=== PATIENT | male | born 1940 | race Caucasian/White ===

== ENCOUNTER 2019-10-18 15:21 | Inpatient (IN) | payer MEDICARE ==
[~2019-10-18] VITALS: Ht 188 cm; Wt 71.3 kg
[2019-10-18 16:07] LABS: BASO # 0.2 x10^3/uL (0.0-0.2); BASO % 2 % (0-3); EOS # 0.1 x10^3/uL (0.0-0.7); EOS % 2 % (0-3); HEMATOCRIT 41.8 % (39.0-53.0); HEMOGLOBIN 14.4 g/dL (13.0-17.5); LYMPH # 1.9 x10^3/uL (1.0-4.8); LYMPH % 23 % (24-48); MEAN CORPUSCULAR HEMOGLOBIN 31 pg (25-35); MEAN CORPUSCULAR HGB CONC 35 g/dL (31-37); MEAN CORPUSCULAR VOLUME 89 fL (79-100); MONO # 0.7 x10^3/uL (0.0-1.1); MONO % 9 % (0-9); NEUT # 5.5 x10^3uL (1.8-7.7); NEUT % 65 % (31-73); PLATELET COUNT 201 x10^3/uL (140-400); RED BLOOD COUNT 4.72 x10^6/uL (4.30-5.70); RED CELL DISTRIBUTION WIDTH 14.2 % (11.5-14.5); WHITE BLOOD COUNT 8.5 x10^3/uL (4.0-11.0)
--- NOTE | 2019-10-18 16:09 | PHYS DOC ---
Adult General Chief Complaint Chief Complaint: MEDICAL CLEARANCE [facility] HPI Patient is an 78-year-old male who presents for medical clearance for [facility] for reported behavioral disturbances. Patient reportedly getting more aggressive with staff and other patients. Additional history is agee ited as patient is not answering questions.[] Review of Systems Review of Systems Constitutional: Denies fever or chills [] Respiratory: Denies cough or shortness of breath [] Cardiovascular: No additional information not addressed in HPI [] GI: No reported vomiting or diarrhea [] Integument: Denies rash or skin lesions [] Neurologic: Denies headache, focal weakness or sensory changes [] Unable to assess for full review of systems as patient is not answering questions. Physical Exam Physical Exam Constitutional: Well developed, well nourished, no acute distress, non-toxic appearance. [] HENT: Normocephalic, atraumatic, bilateral external ears normal, oropharynx moist, no oral exudates, nose normal. [] Eyes: PERRLA, EOMI, conjunctiva normal, no discharge. [] Neck: Normal range of motion, no tenderness, supple, no stridor. [] Cardiovascular: Regular rate and rhythm[] Lungs & Thorax: Bilateral breath sounds clear to auscultation [] Abdomen: Bowel sounds normal, soft, no tenderness. [] Skin: Warm, dry, no erythema, no rash. [] Extremities: No tenderness, no cyanosis, no clubbing, ROM intact. [] Neurologic: Somnolent but arousable, no focal deficits noted. [] EKG EKG [] Radiology/Procedures Radiology/Procedures [] Course & Med Decision Making Course & Med Decision Making Pertinent Labs and Imaging studies reviewed. (See chart for details) [] Dragon Disclaimer Dragon Disclaimer This electronic medical record was generated, in whole or in part, using a voice recognition dictation system. Departure Departure: Impression: Primary Impression: Dementia with behavioral disturbance Disposition: ADMITTED INPATIENT Admitting Physician: Other (Dr. Casillas) Condition: STABLE Referrals: KEANU SHELTON (PCP) Problem Qualifiers Primary Impression: Dementia with behavioral disturbance Dementia type: unspecified type Qualified Codes: F03.91 - Unspecified dementia with behavioral disturbance ADITHYA KELLER Jr. DO Oct 18, 2019 16:09
[2019-10-18 16:18] LABS: CALCIUM 8.6 mg/dL (8.5-10.1); CREATININE 1.6 mg/dL (0.7-1.3); GFR 41.8
[2019-10-18 16:24] LABS: ALBUMIN 3.5 g/dL (3.4-5.0); TOTAL PROTEIN 7.1 g/dL (6.4-8.2)
[2019-10-18 16:43] LABS: BARBITURATES NEG (NEG); BENZODIAZEPINES NEG (NEG); CANNABINOIDS NEG (NEG); COCAINE NEG (NEG); METHADONE NEG (NEG); OPIATES NEG (NEG); PHENCYCLIDINE NEG (NEG)
[2019-10-18 16:44] LABS: AMPHETAMINE/METHAMPHETAMINE NEG (NEG)
[2019-10-18 16:51] LABS: BILIRUBIN,URINE NEG (NEG); CLARITY,URINE CLEAR; COLOR,URINE YELLOW; GLUCOSE,URINE NEG (NEG); NITRITE,URINE NEG (NEG); UROBILINOGEN,URINE 0.2 mg/dL (0.2 mg/dL)
[2019-10-18 16:52] LABS: BACTERIA,URINE 0 /HPF (0-FEW)
--- NOTE | 2019-10-18 16:57 | EKG ---
[address] [address] Test Date: 2019-10-18 Test Time: 16:20:30 Pat Name: NICOLÁS CHRISTIANSON Department: Room: Gender: M Device Engineer: : [id number] Requested By: ADITHYA KELLER Order Number: [id number] Reading MD: Humberto Ortiz MD Measurements Intervals [place] Rate: 66 P: 90 VA: 198 QRS: -47 QRSD: 132 T: 47 QT: 450 QTc: 474 Interpretive Statements SINUS RHYTHM RBBB LAD Electronically Signed On 11-17-2019 10:37:51 RN ELIGIBILITY by Humberto Ortiz MD
[2019-10-18 18:25] VITALS: BP 138/74
[2019-10-18] MEDS ORDERED: MAGN400O7 PO (18:26)
[2019-10-18] MEDS ORDERED: MAG-27 PO (18:26)
[2019-10-18] MEDS ORDERED: BISA10SU4 RC (18:26)
[2019-10-18] MEDS ORDERED: ACET650S11 RC (18:26)
[2019-10-18] MEDS ORDERED: OLAN2.5T3 PO (18:26)
[2019-10-18] MEDS ORDERED: ACET650S19 PO (18:26)
[2019-10-18] MEDS ORDERED: LORA-254 PO (18:26)
[2019-10-18] MEDS ORDERED: POTA20TA4 PO (18:26)
[2019-10-18] MEDS ORDERED: ACET325T21 PO (18:26)
[2019-10-18] MEDS ORDERED: MEMA28CA PO (18:26)
[2019-10-18] MEDS ORDERED: LOSA1TAB19 PO (18:26)
[2019-10-18] MEDS ORDERED: MIRT7.5T8 PO (18:26)
[2019-10-18] MEDS ORDERED: DONE10TA61 PO (18:26)
[2019-10-18] MEDS ORDERED: ASPI81TA59 PO (18:26)
[2019-10-18] MEDS ORDERED: MELA3TAB56 PO (18:26)
[2019-10-18] MEDS ORDERED: AMLO5TAB4 PO (18:26)
[2019-10-18] MEDS ORDERED: LOPE2TAB27 PO (18:26)
[2019-10-18] MEDS ORDERED: BISACODYL 10 MG SUPP.RECT RC PRN (19:30)
[2019-10-18] MEDS ORDERED: ACETAMINOPHEN 325 MG TABLET PO PRN ×2 (19:30→22:15)
[2019-10-18] MEDS ORDERED: ACETAMINOPHEN 650 MG SUPP.RECT. RC PRN (19:30)
[2019-10-18] MEDS ORDERED: MAG HYDROX/AL HYDROX/SIMETH 30 ML ORAL.SUSP PO PRN ×2 (19:45→22:15)
[2019-10-18] MEDS ORDERED: LOPERAMIDE 2 MG CAPSULE PO PRN (19:45)
[2019-10-18] MEDS: MIRTAZAPINE 7.5 MG TABLET. PO SCH (20:33)
[2019-10-18] MEDS: MELATONIN 3 MG TABLET PO SCH (20:33)
[2019-10-18] MEDS: OLANZapine 2.5 MG TABLET PO SCH (20:33)
[2019-10-18] MEDS: hydroCHLOROthiazide 12.5 MG CAPSULE PO SCH (20:34)
[2019-10-18] MEDS: LOSARTAN 50 MG TABLET. PO SCH (20:34)
[2019-10-18] MEDS: MAGNESIUM HYDROXIDE 2,400 MG/30 ML ORAL.SUSP. PO SCH (20:35)
[2019-10-18] MEDS: ACETAMINOPHEN 650 MG/20.3 ML SOLUTION. PO SCH (20:35)
[2019-10-18] MEDS: DONEPEZIL HCL 10 MG TABLET PO SCH (20:35)
--- NOTE | 2019-10-18 21:09 | PDOC ---
Exam Note: Jose Eduardo Note: Please also refer to the separate dictated note~for this date of service dictated separately. Discussed the patient with Nursing staff reviewed the chart.~Reviewed interim history and current functioning. Reviewed vital signs,~Labs/ Radiology~and current medications noted below. Continue current treatment with the changes noted in the dictated addendum note Assessment: Vital Signs/I&O: Vital Signs Date Time Temp Pulse Resp B/P (MAP) Pulse Ox O2 Delivery O2 Flow Rate FiO2 10/18/19 20:34 64 138/74 10/18/19 18:25 97.2 20 95 10/18/19 15:35 Room Air Labs: Laboratory Tests Test 10/18/19 15:51 10/18/19 16:25 White Blood Count 8.5 x10^3/uL (4.0-11.0) Red Blood Count 4.72 x10^6/uL (4.30-5.70) Hemoglobin 14.4 g/dL (13.0-17.5) Hematocrit 41.8 % (39.0-53.0) Mean Corpuscular Volume 89 fL (79-100) Mean Corpuscular Hemoglobin 31 pg (25-35) Mean Corpuscular Hemoglobin Concent 35 g/dL (31-37) Red Cell Distribution Width 14.2 % (11.5-14.5) Platelet Count 201 x10^3/uL (140-400) Neutrophils (%) (Auto) 65 % (31-73) Lymphocytes (%) (Auto) 23 % (24-48) L Monocytes (%) (Auto) 9 % (0-9) Eosinophils (%) (Auto) 2 % (0-3) Basophils (%) (Auto) 2 % (0-3) Neutrophils # (Auto) 5.5 x10^3uL (1.8-7.7) Lymphocytes # (Auto) 1.9 x10^3/uL (1.0-4.8) Monocytes # (Auto) 0.7 x10^3/uL (0.0-1.1) Eosinophils # (Auto) 0.1 x10^3/uL (0.0-0.7) Basophils # (Auto) 0.2 x10^3/uL (0.0-0.2) Sodium Level 145 mmol/L (136-145) Potassium Level 4.0 mmol/L (3.5-5.1) Chloride Level 110 mmol/L (98-107) H Carbon Dioxide Level 26 mmol/L (21-32) Anion Gap 9 (6-14) Blood Urea Nitrogen 32 mg/dL (8-26) H Creatinine 1.6 mg/dL (0.7-1.3) H Estimated GFR (Cockcroft-Gault) 41.8 BUN/Creatinine Ratio 20 (6-20) Glucose Level 90 mg/dL (70-99) Calcium Level 8.6 mg/dL (8.5-10.1) Magnesium Level 2.2 mg/dL (1.8-2.4) Total Bilirubin 1.0 mg/dL (0.2-1.0) Aspartate Amino Transferase (AST) 25 U/L (15-37) Alanine Aminotransferase (ALT) 24 U/L (16-63) Alkaline Phosphatase 81 U/L (46-116) Total Protein 7.1 g/dL (6.4-8.2) Albumin 3.5 g/dL (3.4-5.0) Albumin/Globulin Ratio 1.0 (1.0-1.7) Ethyl Alcohol Level < 10 mg/dL (0-10) Urine Collection Type U cath Urine Color Yellow Urine Clarity Clear Urine pH 5.5 Urine Specific Reading >=1.030 Urine Protein Neg (NEG-TRACE) Urine Glucose (UA) Neg mg/dL (NEG) Urine Ketones (Stick) Neg mg/dL (NEG) Urine Blood Trace (NEG) Urine Nitrite Neg (NEG) Urine Bilirubin Neg (NEG) Urine Urobilinogen Dipstick 0.2 mg/dL (0.2 mg/dL) Urine Leukocyte Esterase Neg (NEG) Urine RBC 1-2 /HPF (0-2) Urine WBC 1-4 /HPF (0-4) Urine Squamous Epithelial Cells None /LPF Urine Transitional Epithelial Cells Few /LPF Urine Bacteria 0 /HPF (0-FEW) Urine Mucus Slight /LPF Urine Opiates Screen Neg (NEG) Urine Methadone Screen Neg (NEG) Urine Barbiturates Neg (NEG) Urine Phencyclidine Screen Neg (NEG) Urine Amphetamine/Methamphetamine Neg (NEG) Urine Benzodiazepines Screen Neg (NEG) Urine Cocaine Screen Neg (NEG) Urine Cannabinoids Screen Neg (NEG) Urine Ethyl Alcohol Neg (NEG) Current Medications: Meds: Current Medications Medications (Trade) Dose Ordered Sig/Cathi Route PRN Reason Start Time Stop Time Status Last Admin Dose Admin Acetaminophen (Tylenol Oral Soln) 650 mg BID PO 10/18/19 21:00 10/18/19 20:35 Donepezil HCl (Aricept) 22.5 mg QHS PO 10/18/19 21:00 10/18/19 20:35 Melatonin (Melatonin) 3 mg QHS PO 10/18/19 21:00 10/18/19 20:33 Mirtazapine (Remeron) 7.5 mg QHS PO 10/18/19 21:00 10/18/19 20:33 Olanzapine (ZyPREXA) 2.5 mg BID PO 10/18/19 21:00 10/18/19 20:33 Losartan Potassium (Cozaar) 50 mg QHS PO 10/18/19 21:00 10/18/19 20:34 Hydrochlorothiazide (Microzide) 12.5 mg QHS PO 10/18/19 21:00 10/18/19 20:34 I have reviewed the current psychotropics carefully including drug interactions. Risk benefit ratio favors no change other than as noted in my dictated progress note. Diagnosis: Problems: (1) Anxiety disorder (2) Dementia with behavioral disturbance (3) Dementia, vascular, with delusions (4) Dementia, vascular, with depression (5) Dementia in Alzheimer's disease with delusions (6) Dementia in Alzheimer's disease with depression (7) Impulse control disorder MAN VICKERS MD Oct 18, 2019 21:09
[2019-10-18] MEDS ORDERED: MAGNESIUM HYDROXIDE 2,400 MG/30 ML ORAL.SUSP. PO PRN (22:15)
[2019-10-18] MEDS ORDERED: METHYL SALICYLATE/MENTHOL TOPICAL OINTMENT 57GM TUBE. TP PRN (22:15)
[2019-10-19 05:15] VITALS: BP 140/81
[2019-10-19] MEDS: LORazepam 0.5 MG TABLET PO PRN (06:11)
[2019-10-19] MEDS: MEMANTINE 10 MG TABLET. PO SCH ×2 (10:14→21:02)
[2019-10-19] MEDS: POTASSIUM CHLORIDE 20 MEQ TABLET.ER. PO SCH (10:14)
[2019-10-19] MEDS: OLANZapine 2.5 MG TABLET PO SCH ×2 (10:14→21:01)
[2019-10-19] MEDS: ASPIRIN 81 MG TAB.CHEW PO SCH (10:15)
[2019-10-19] MEDS: amLODIPine BESYLATE 5 MG TABLET PO SCH (10:15)
[2019-10-19] MEDS: ACETAMINOPHEN 650 MG/20.3 ML SOLUTION. PO SCH ×2 (10:15→21:02)
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
[2019-10-19 19:17] LABS: THYROID STIM HORMONE (TSH) 2.098 uIU/mL (0.358-3.740)
[2019-10-19] MEDS: MIRTAZAPINE 7.5 MG TABLET. PO SCH (21:01)
[2019-10-19] MEDS: DONEPEZIL HCL 10 MG TABLET PO SCH (21:01)
[2019-10-19] MEDS: LOSARTAN 50 MG TABLET. PO SCH (21:02)
[2019-10-19] MEDS: hydroCHLOROthiazide 12.5 MG CAPSULE PO SCH (21:02)
[2019-10-19] MEDS: MELATONIN 3 MG TABLET PO SCH (21:02)
[2019-10-19] MEDS: MAGNESIUM HYDROXIDE 2,400 MG/30 ML ORAL.SUSP. PO SCH (21:03)
--- NOTE | 2019-10-19 21:26 | PDOC ---
Exam Note: Jose Eduardo Note: Please also refer to the separate dictated note~for this date of service dictated separately.~Patient seen individually. Discussed the patient with Nursing staff reviewed the chart.~Reviewed interim history and current functioning. Reviewed vital signs,~Labs/ Radiology~and current medications noted below. Continue current treatment with the changes noted in the dictated addendum note Assessment: Vital Signs/I&O: Vital Signs Date Time Temp Pulse Resp B/P (MAP) Pulse Ox O2 Delivery O2 Flow Rate FiO2 10/19/19 21:02 47 140/81 10/19/19 05:15 97.0 16 98 10/18/19 15:35 Room Air I & O 10/18/19 10/18/19 10/19/19 15:00 23:00 07:00 Intake Total 0 ml Balance 0 ml Labs: Laboratory Tests Test 10/19/19 19:31 Glucose (Fingerstick) 84 mg/dL (70-99) Current Medications: Meds: Current Medications Medications (Trade) Dose Ordered Sig/Cathi Route PRN Reason Start Time Stop Time Status Last Admin Dose Admin Amlodipine Besylate (Norvasc) 5 mg DAILY PO 10/19/19 09:00 10/19/19 10:15 Aspirin (Children'S Aspirin) 162 mg DAILY PO 10/19/19 09:00 10/19/19 10:15 Potassium Chloride (Klor-Con) 20 meq DAILY PO 10/19/19 09:00 10/19/19 10:14 Memantine (Namenda) 10 mg BID PO 10/19/19 09:00 10/19/19 21:02 I have reviewed the current psychotropics carefully including drug interactions. Risk benefit ratio favors no change other than as noted in my dictated progress note. Diagnosis: Problems: (1) Dementia with behavioral disturbance (2) Anxiety disorder (3) Dementia, vascular, with delusions (4) Dementia, vascular, with depression (5) Dementia in Alzheimer's disease with delusions (6) Dementia in Alzheimer's disease with depression (7) Impulse control disorder MAN VICKERS MD Oct 19, 2019 21:26
[2019-10-19 23:06] LABS: HEMOGLOBIN A1C 5.1 % (4.8-5.6)
[2019-10-20 00:06] LABS: THYROXINE 6.8 ug/dL (4.5-12.0)
[2019-10-20] MEDS: traZODone 50 MG TABLET. PO PRN (01:13)
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
[2019-10-20 05:08] VITALS: BP 131/78
[2019-10-20] MEDS: OLANZapine 2.5 MG TABLET PO SCH ×2 (08:48→19:44)
[2019-10-20] MEDS: POTASSIUM CHLORIDE 20 MEQ TABLET.ER. PO SCH (08:49)
[2019-10-20] MEDS: amLODIPine BESYLATE 5 MG TABLET PO SCH (08:49)
[2019-10-20] MEDS: MEMANTINE 10 MG TABLET. PO SCH ×2 (08:49→19:42)
[2019-10-20] MEDS: ACETAMINOPHEN 650 MG/20.3 ML SOLUTION. PO SCH ×2 (08:49→19:42)
[2019-10-20] MEDS: ASPIRIN 81 MG TAB.CHEW PO SCH (08:49)
[2019-10-20] MEDS: SERTRALINE 25 MG TABLET. PO SCH (08:52)
[2019-10-20 15:39] VITALS: BP 109/53
[2019-10-20] MEDS: MAGNESIUM HYDROXIDE 2,400 MG/30 ML ORAL.SUSP. PO SCH (19:42)
[2019-10-20] MEDS: DONEPEZIL HCL 10 MG TABLET PO SCH (19:42)
[2019-10-20] MEDS: MIRTAZAPINE 7.5 MG TABLET. PO SCH (19:43)
[2019-10-20] MEDS: hydroCHLOROthiazide 12.5 MG CAPSULE PO SCH ×3 (19:43→19:54)
[2019-10-20] MEDS: MELATONIN 3 MG TABLET PO SCH (19:44)
[2019-10-20] MEDS: LOSARTAN 50 MG TABLET. PO SCH ×3 (19:44→19:54)
--- NOTE | 2019-10-20 20:49 | PDOC ---
Exam Note: Jose Eduardo Note: Please also refer to the separate dictated note~for this date of service dictated separately.~Patient seen individually. Discussed the patient with Nursing staff reviewed the chart.~Reviewed interim history and current functioning. Reviewed vital signs,~Labs/ Radiology~and current medications noted below. Continue current treatment with the changes noted in the dictated addendum note Assessment: Vital Signs/I&O: Vital Signs Date Time Temp Pulse Resp B/P (MAP) Pulse Ox O2 Delivery O2 Flow Rate FiO2 10/20/19 19:54 104/66 10/20/19 15:39 97.6 75 18 96 10/20/19 05:08 Room Air I & O 10/19/19 10/19/19 10/20/19 14:59 22:59 06:59 Intake Total 420 ml 0 ml Balance 420 ml 0 ml Current Medications: Meds: Current Medications Medications (Trade) Dose Ordered Sig/Cathi Route PRN Reason Start Time Stop Time Status Last Admin Dose Admin Sertraline HCl (Zoloft) 25 mg DAILY PO 10/20/19 09:00 10/23/19 08:59 10/20/19 08:52 I have reviewed the current psychotropics carefully including drug interactions. Risk benefit ratio favors no change other than as noted in my dictated progress note. Diagnosis: Problems: (1) Dementia with behavioral disturbance (2) Anxiety disorder (3) Dementia, vascular, with delusions (4) Dementia, vascular, with depression (5) Dementia in Alzheimer's disease with delusions (6) Dementia in Alzheimer's disease with depression (7) Impulse control disorder MAN VICKERS MD Oct 20, 2019 20:49
[2019-10-21 05:36] VITALS: BP 111/73
[2019-10-21] MEDS: SERTRALINE 25 MG TABLET. PO SCH (10:33)
[2019-10-21] MEDS: OLANZapine 2.5 MG TABLET PO SCH ×2 (10:33→19:48)
[2019-10-21] MEDS: ACETAMINOPHEN 650 MG/20.3 ML SOLUTION. PO SCH ×2 (10:33→19:48)
[2019-10-21] MEDS: POTASSIUM CHLORIDE 20 MEQ TABLET.ER. PO SCH (10:33)
[2019-10-21] MEDS: amLODIPine BESYLATE 5 MG TABLET PO SCH (10:33)
[2019-10-21] MEDS: ASPIRIN 81 MG TAB.CHEW PO SCH (10:33)
[2019-10-21] MEDS: MEMANTINE 10 MG TABLET. PO SCH ×2 (10:34→19:48)
[2019-10-21 13:15] VITALS: BP 151/72
[2019-10-21 16:18] VITALS: BP 115/73
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
[2019-10-21] MEDS: LOSARTAN 50 MG TABLET. PO SCH (19:47)
[2019-10-21] MEDS: hydroCHLOROthiazide 12.5 MG CAPSULE PO SCH (19:47)
[2019-10-21] MEDS: MELATONIN 3 MG TABLET PO SCH (19:47)
[2019-10-21] MEDS: DONEPEZIL HCL 10 MG TABLET PO SCH (19:47)
[2019-10-21] MEDS: MIRTAZAPINE 7.5 MG TABLET. PO SCH (19:48)
[2019-10-21] MEDS: MAGNESIUM HYDROXIDE 2,400 MG/30 ML ORAL.SUSP. PO SCH (19:48)
--- NOTE | 2019-10-21 21:09 | PDOC ---
Exam Note: Jose Eduardo Note: Please also refer to the separate dictated note~for this date of service dictated separately.~Patient seen individually. Discussed the patient with Nursing staff reviewed the chart.~Reviewed interim history and current functioning. Reviewed vital signs,~Labs/ Radiology~and current medications noted below. Continue current treatment with the changes noted in the dictated addendum note Assessment: Vital Signs/I&O: Vital Signs Date Time Temp Pulse Resp B/P (MAP) Pulse Ox O2 Delivery O2 Flow Rate FiO2 10/21/19 19:47 83 115/73 10/21/19 16:18 97.9 20 96 Room Air I & O 10/20/19 10/20/19 10/21/19 15:00 23:00 07:00 Intake Total 240 ml 240 ml 240 ml Balance 240 ml 240 ml 240 ml Current Medications: I have reviewed the current psychotropics carefully including drug interactions. Risk benefit ratio favors no change other than as noted in my dictated progress note. Diagnosis: Problems: (1) Dementia with behavioral disturbance (2) Anxiety disorder (3) Dementia, vascular, with delusions (4) Dementia, vascular, with depression (5) Dementia in Alzheimer's disease with delusions (6) Dementia in Alzheimer's disease with depression (7) Impulse control disorder MAN VICKERS MD Oct 21, 2019 21:09
--- NOTE | 2019-10-22 01:14 | PN ---
DATE: 10/19/2019 PSYCHIATRIC PROGRESS NOTE This late entry date of service 10/19/2019 covers the elements not covered in my initial note. SUBJECTIVE: Per CLAUDE Canseco, the patient slept 7 hours previous night. He remains in onesie, combative at times. At 6:15, he received Ativan for this. We will change the Namenda XR to Namenda 10 mg twice a day. REVIEW OF SYSTEMS: No CV, , pulmonary, eye, ENT system symptoms on review. Extremely hard of hearing. MENTAL STATUS EXAM: Oriented to himself. Insight, judgment, recent, and remote memory, attention, concentration, fund of knowledge poor, consistent with his diagnosis mentioned in my initial note. PLAN: Start Zoloft 25 mg a day and in 3 days, increase to 50 mg a day, change Namenda as above, maintain Zyprexa 2.5 b.i.d., melatonin 3 mg at bedtime. Rest unchanged for now. MAN Eulalio VICKERS MD DR: AARON/mannei JOB#: [id number] / [id number]
[2019-10-22 04:49] VITALS: BP 145/69
[2019-10-22] MEDS: ACETAMINOPHEN 650 MG/20.3 ML SOLUTION. PO SCH ×2 (08:44→20:00)
[2019-10-22] MEDS: ASPIRIN 81 MG TAB.CHEW PO SCH (08:46)
[2019-10-22] MEDS: SERTRALINE 25 MG TABLET. PO SCH (08:46)
[2019-10-22] MEDS: MEMANTINE 10 MG TABLET. PO SCH ×2 (08:46→19:53)
[2019-10-22] MEDS: OLANZapine 2.5 MG TABLET PO SCH (08:46)
[2019-10-22] MEDS: POTASSIUM CHLORIDE 20 MEQ TABLET.ER. PO SCH (08:46)
[2019-10-22] MEDS: amLODIPine BESYLATE 5 MG TABLET PO SCH (08:47)
--- NOTE | 2019-10-22 09:36 | PN ---
DATE: 10/21/2019 This late entry 10/21/2019 covers elements not covered in my initial note. SUBJECTIVE: I met with the patient evening of 10/21/2019. Per CLAUDE Jones, the patient slept 6-3/4 hours previous night. He had a fall at 1:00 p.m. No injuries noted, bumped his left elbow, refused to wheelchair and walker, resistive to toileting and being dressed. REVIEW OF SYSTEMS: Hard of hearing. No CV, , pulmonary, eye system symptoms on review. Reliability poor. MENTAL STATUS EXAM: Oriented to himself. Insight, judgment, recent and remote memory, attention, concentration, fund of knowledge poor, consistent with his diagnosis mentioned in my initial note. PLAN: Gradually increase the Zoloft. Maintain rest of the psychotropics unchanged. He is not on any benzodiazepine that would predispose him to falls, we will continue to monitor this closely. MAN VICKERS MD DR: AARON/mannie JOB#: [id number] / [id number]
[2019-10-22 09:41] LABS: BASO # 0.1 x10^3/uL (0.0-0.2); BASO % 1 % (0-3); EOS # 0.3 x10^3/uL (0.0-0.7); EOS % 4 % (0-3); HEMATOCRIT 44.3 % (39.0-53.0); HEMOGLOBIN 14.7 g/dL (13.0-17.5); LYMPH # 1.6 x10^3/uL (1.0-4.8); LYMPH % 20 % (24-48); MEAN CORPUSCULAR HEMOGLOBIN 30 pg (25-35); MEAN CORPUSCULAR HGB CONC 33 g/dL (31-37); MEAN CORPUSCULAR VOLUME 91 fL (79-100); MONO # 0.4 x10^3/uL (0.0-1.1); MONO % 5 % (0-9); NEUT # 5.7 x10^3uL (1.8-7.7); NEUT % 71 % (31-73); PLATELET COUNT 199 x10^3/uL (140-400); RED BLOOD COUNT 4.86 x10^6/uL (4.30-5.70); RED CELL DISTRIBUTION WIDTH 14.2 % (11.5-14.5); WHITE BLOOD COUNT 8.1 x10^3/uL (4.0-11.0)
[2019-10-22 09:55] LABS: ALBUMIN 3.3 g/dL (3.4-5.0); ALBUMIN/GLOBULIN RATIO 0.9 (1.0-1.7); CALCIUM 8.7 mg/dL (8.5-10.1); CREATININE 1.5 mg/dL (0.7-1.3); POTASSIUM 3.8 mmol/L (3.5-5.1); TOTAL BILIRUBIN 0.7 mg/dL (0.2-1.0)
--- NOTE | 2019-10-22 12:27 | PN ---
DATE: 10/20/2019 PSYCHIATRIC PROGRESS NOTE This late entry 10/20/2019 covers elements not covered in my initial note. SUBJECTIVE: I met with the patient evening of 10/20/2019. Per CLAUDE Maza, the patient slept 4-1/2 hours previous night. He is extremely hard of hearing, also confused, but the hard of hearing makes his confusion appear worse than it is. Takes his meds in [place] [facility]. REVIEW OF SYSTEMS: No CV, , pulmonary, eye system symptoms on review. Hard of hearing. Reliability poor. MENTAL STATUS EXAM: Oriented to himself. Insight, judgment, recent and remote memory, attention, concentration, fund of knowledge poor, consistent with his diagnosis mentioned in my initial note. PLAN: No change from initial note. MAN Eulalio VICKERS MD DR: AARON/mannie JOB#: [id number] / [id number]
[2019-10-22 15:45] VITALS: BP 151/74
[2019-10-22] MEDS: traZODone 50 MG TABLET. PO PRN (19:52)
[2019-10-22] MEDS: MAGNESIUM HYDROXIDE 2,400 MG/30 ML ORAL.SUSP. PO SCH (19:53)
[2019-10-22] MEDS: MELATONIN 3 MG TABLET PO SCH (19:53)
[2019-10-22] MEDS: DONEPEZIL HCL 10 MG TABLET PO SCH (19:53)
[2019-10-22] MEDS: MIRTAZAPINE 7.5 MG TABLET. PO SCH (19:53)
--- NOTE | 2019-10-22 20:59 | PDOC ---
Exam Note: Jose Eduardo Note: Please also refer to the separate dictated note~for this date of service dictated separately.~Patient seen individually. Discussed the patient with Nursing staff reviewed the chart.~Reviewed interim history and current functioning. Reviewed vital signs,~Labs/ Radiology~and current medications noted below. Continue current treatment with the changes noted in the dictated addendum note Assessment: Vital Signs/I&O: Vital Signs Date Time Temp Pulse Resp B/P (MAP) Pulse Ox O2 Delivery O2 Flow Rate FiO2 10/22/19 15:45 98.0 57 16 151/74 (99) 96 10/22/19 04:49 Room Air I & O 10/21/19 10/21/19 10/22/19 15:00 23:00 07:00 Intake Total 480 ml 600 ml Balance 480 ml 600 ml Labs: Laboratory Tests Test 10/22/19 09:11 White Blood Count 8.1 x10^3/uL (4.0-11.0) Red Blood Count 4.86 x10^6/uL (4.30-5.70) Hemoglobin 14.7 g/dL (13.0-17.5) Hematocrit 44.3 % (39.0-53.0) Mean Corpuscular Volume 91 fL (79-100) Mean Corpuscular Hemoglobin 30 pg (25-35) Mean Corpuscular Hemoglobin Concent 33 g/dL (31-37) Red Cell Distribution Width 14.2 % (11.5-14.5) Platelet Count 199 x10^3/uL (140-400) Neutrophils (%) (Auto) 71 % (31-73) Lymphocytes (%) (Auto) 20 % (24-48) L Monocytes (%) (Auto) 5 % (0-9) Eosinophils (%) (Auto) 4 % (0-3) H Basophils (%) (Auto) 1 % (0-3) Neutrophils # (Auto) 5.7 x10^3uL (1.8-7.7) Lymphocytes # (Auto) 1.6 x10^3/uL (1.0-4.8) Monocytes # (Auto) 0.4 x10^3/uL (0.0-1.1) Eosinophils # (Auto) 0.3 x10^3/uL (0.0-0.7) Basophils # (Auto) 0.1 x10^3/uL (0.0-0.2) Sodium Level 146 mmol/L (136-145) H Potassium Level 3.8 mmol/L (3.5-5.1) Chloride Level 108 mmol/L (98-107) H Carbon Dioxide Level 31 mmol/L (21-32) Anion Gap 7 (6-14) Blood Urea Nitrogen 40 mg/dL (8-26) H Creatinine 1.5 mg/dL (0.7-1.3) H Estimated GFR (Cockcroft-Gault) 45.0 BUN/Creatinine Ratio 27 (6-20) H Glucose Level 124 mg/dL (70-99) H Calcium Level 8.7 mg/dL (8.5-10.1) Total Bilirubin 0.7 mg/dL (0.2-1.0) Aspartate Amino Transferase (AST) 22 U/L (15-37) Alanine Aminotransferase (ALT) 20 U/L (16-63) Alkaline Phosphatase 80 U/L (46-116) Total Protein 7.0 g/dL (6.4-8.2) Albumin 3.3 g/dL (3.4-5.0) L Albumin/Globulin Ratio 0.9 (1.0-1.7) L Current Medications: Meds: Current Medications Medications (Trade) Dose Ordered Sig/Cathi Route PRN Reason Start Time Stop Time Status Last Admin Dose Admin Olanzapine (ZyPREXA ZYDIS) 2.5 mg PRN Q2HR PRN PO PSYCHOSIS 10/22/19 11:45 10/22/19 19:53 I have reviewed the current psychotropics carefully including drug interactions. Risk benefit ratio favors no change other than as noted in my dictated progress note. Diagnosis: Problems: (1) Dementia with behavioral disturbance (2) Anxiety disorder (3) Dementia, vascular, with delusions (4) Dementia, vascular, with depression (5) Dementia in Alzheimer's disease with delusions (6) Dementia in Alzheimer's disease with depression (7) Impulse control disorder MAN VICKERS MD Oct 22, 2019 20:59
[2019-10-23 04:56] VITALS: BP 174/72
[2019-10-23] MEDS: MEMANTINE 10 MG TABLET. PO SCH ×2 (09:20→20:57)
[2019-10-23] MEDS: ASPIRIN 81 MG TAB.CHEW PO SCH (09:20)
[2019-10-23] MEDS: POTASSIUM CHLORIDE 20 MEQ TABLET.ER. PO SCH (09:20)
[2019-10-23] MEDS: ACETAMINOPHEN 650 MG/20.3 ML SOLUTION. PO SCH ×2 (09:21→20:57)
[2019-10-23] MEDS: amLODIPine BESYLATE 5 MG TABLET PO SCH (09:21)
[2019-10-23] MEDS: SERTRALINE 50 MG TABLET. PO SCH (09:22)
[2019-10-23] MEDS: MIRTAZAPINE 7.5 MG TABLET. PO SCH (20:57)
[2019-10-23] MEDS: traZODone 50 MG TABLET. PO PRN (20:57)
[2019-10-23] MEDS: MELATONIN 3 MG TABLET PO SCH (20:57)
[2019-10-23] MEDS: MAGNESIUM HYDROXIDE 2,400 MG/30 ML ORAL.SUSP. PO SCH (21:00)
[2019-10-23] MEDS: DONEPEZIL 23 MG TABLET PO SCH (21:01)
--- NOTE | 2019-10-23 21:22 | PDOC ---
Exam Note: Jose Eduardo Note: Please also refer to the separate dictated note~for this date of service dictated separately.~Patient seen individually. Discussed the patient with Nursing staff reviewed the chart.~Reviewed interim history and current functioning. Reviewed vital signs,~Labs/ Radiology~and current medications noted below. Continue current treatment with the changes noted in the dictated addendum note Assessment: Vital Signs/I&O: Vital Signs Date Time Temp Pulse Resp B/P (MAP) Pulse Ox O2 Delivery O2 Flow Rate FiO2 10/23/19 09:21 67 174/72 10/23/19 04:56 97.0 14 96 10/22/19 04:49 Room Air I & O 10/22/19 10/22/19 10/23/19 15:00 23:00 07:00 Intake Total 600 ml 360 ml Balance 600 ml 360 ml Current Medications: Meds: Current Medications Medications (Trade) Dose Ordered Sig/Cathi Route PRN Reason Start Time Stop Time Status Last Admin Dose Admin Sertraline HCl (Zoloft) 50 mg DAILY PO 10/23/19 09:00 10/23/19 09:22 Donepezil HCl (Aricept) 23 mg QHS PO 10/23/19 21:00 10/23/19 21:01 I have reviewed the current psychotropics carefully including drug interactions. Risk benefit ratio favors no change other than as noted in my dictated progress note. Diagnosis: Problems: (1) Dementia with behavioral disturbance (2) Anxiety disorder (3) Dementia, vascular, with delusions (4) Dementia, vascular, with depression (5) Dementia in Alzheimer's disease with delusions (6) Dementia in Alzheimer's disease with depression (7) Impulse control disorder MAN VICKERS MD Oct 23, 2019 21:22
[2019-10-24 05:01] VITALS: BP 148/67
[2019-10-24] MEDS: CHOLECALCIFEROL (VITAMIN D3) 50,000 UNIT CAPSULE PO SCH (09:14)
[2019-10-24] MEDS: ACETAMINOPHEN 650 MG/20.3 ML SOLUTION. PO SCH ×2 (09:14→20:17)
[2019-10-24] MEDS: ASPIRIN 81 MG TAB.CHEW PO SCH (09:14)
[2019-10-24] MEDS: POTASSIUM CHLORIDE 20 MEQ TABLET.ER. PO SCH (09:14)
[2019-10-24] MEDS: MEMANTINE 10 MG TABLET. PO SCH ×2 (09:14→20:12)
[2019-10-24] MEDS: SERTRALINE 50 MG TABLET. PO SCH (09:15)
[2019-10-24] MEDS: amLODIPine BESYLATE 5 MG TABLET PO SCH (09:15)
[2019-10-24 15:48] VITALS: BP 106/66
[2019-10-24] MEDS: traZODone 50 MG TABLET. PO PRN (20:12)
[2019-10-24] MEDS: MIRTAZAPINE 7.5 MG TABLET. PO SCH (20:12)
[2019-10-24] MEDS: DONEPEZIL 23 MG TABLET PO SCH (20:12)
[2019-10-24] MEDS: MELATONIN 3 MG TABLET PO SCH (20:12)
[2019-10-24] MEDS: MAGNESIUM HYDROXIDE 2,400 MG/30 ML ORAL.SUSP. PO SCH (20:17)
--- NOTE | 2019-10-24 20:44 | PDOC ---
Exam Note: Jose Eduardo Note: Please also refer to the separate dictated note~for this date of service dictated separately.~Patient seen individually. Discussed the patient with Nursing staff reviewed the chart.~Reviewed interim history and current functioning. Reviewed vital signs,~Labs/ Radiology~and current medications noted below. Continue current treatment with the changes noted in the dictated addendum note Assessment: Vital Signs/I&O: Vital Signs Date Time Temp Pulse Resp B/P (MAP) Pulse Ox O2 Delivery O2 Flow Rate FiO2 10/24/19 15:48 97.6 76 18 106/66 (79) 97 10/22/19 04:49 Room Air I & O 10/23/19 10/23/19 10/24/19 15:00 23:00 07:00 Intake Total 240 ml 480 ml Balance 240 ml 480 ml Current Medications: Meds: Current Medications Medications (Trade) Dose Ordered Sig/Cathi Route PRN Reason Start Time Stop Time Status Last Admin Dose Admin Donepezil HCl (Aricept) 23 mg QHS PO 10/23/19 21:00 10/24/19 20:12 I have reviewed the current psychotropics carefully including drug interactions. Risk benefit ratio favors no change other than as noted in my dictated progress note. Diagnosis: Problems: (1) Dementia with behavioral disturbance (2) Anxiety disorder (3) Dementia, vascular, with delusions (4) Dementia, vascular, with depression (5) Dementia in Alzheimer's disease with delusions (6) Dementia in Alzheimer's disease with depression (7) Impulse control disorder MAN VICKERS MD Oct 24, 2019 20:44
[2019-10-24 22:09] LABS: HEMATOCRIT 42.3 % (39.0-53.0); HEMOGLOBIN 13.9 g/dL (13.0-17.5); RED BLOOD COUNT 4.62 x10^6/uL (4.30-5.70); RED CELL DISTRIBUTION WIDTH 14.2 % (11.5-14.5); WHITE BLOOD COUNT 11.6 x10^3/uL (4.0-11.0)
[2019-10-24 22:32] LABS: ALBUMIN 3.2 g/dL (3.4-5.0); ALBUMIN/GLOBULIN RATIO 0.8 (1.0-1.7); C REACTIVE PROTEIN 50.5 mg/L (0-3.3); CALCIUM 8.3 mg/dL (8.5-10.1); CREATININE 1.3 mg/dL (0.7-1.3); GFR 53.1; POTASSIUM 4.9 mmol/L (3.5-5.1); TOTAL BILIRUBIN 0.6 mg/dL (0.2-1.0)
--- NOTE | 2019-10-25 07:01 | PN ---
DATE: 10/23/2019 PSYCHIATRIC PROGRESS NOTE This late entry 10/23/2019 covers elements not covered in my initial note. SUBJECTIVE: I met with the patient evening of 10/23/2019. The patient slept 7-3/4 hours previous night. He gets agitated with showers, received Zyprexa, this seemed to help. REVIEW OF SYSTEMS: No CV, , pulmonary, eye, ENT system symptoms on review. Reliability poor. MENTAL STATUS EXAM: Oriented to himself. Insight, judgment, recent and remote memory, attention, concentration, fund of knowledge poor, consistent with his diagnosis mentioned in my initial note. PLAN: No change from initial note. MAN Eulalio VICKERS MD DR: AARON/mannie JOB#: [id number] / [id number]
--- NOTE | 2019-10-25 07:13 | PN ---
DATE: 10/22/2019 PSYCHIATRIC PROGRESS NOTE This late entry of 10/22/2019 covers the elements not covered in my initial note. SUBJECTIVE: I met with the patient in the evening of 10/22/2019 and staffed at a treatment team meeting with the entire team earlier in the day with CLAUDE Aguilar. The patient slept 6 hours previous night. Appetite 40%, resistive with redirection, confused, but compliant. He gets paranoid, agitated at times, very hard of hearing, which worsens confusion. REVIEW OF SYSTEMS: No CV, , pulmonary, eye system symptoms on review. Reliability poor. MENTAL STATUS EXAM: Oriented to himself. Insight, judgment, recent and remote memory, attention, concentration, fund of knowledge poor, consistent with his diagnosis mentioned in my initial note. PLAN: No change from initial note. Start Zyprexa Zydis 2.5 mg q. 2 hours p.r.n. psychosis, agitation, max 7.5 mg in 24 hours. Continue rest of the psychotropics unchanged. MAN VICKERS MD DR: AARON/mannie JOB#: [id number] / [id number]
[2019-10-25] MEDS: POTASSIUM CHLORIDE 20 MEQ TABLET.ER. PO SCH (08:29)
[2019-10-25] MEDS: ACETAMINOPHEN 650 MG/20.3 ML SOLUTION. PO SCH ×2 (08:29→19:40)
[2019-10-25] MEDS: SERTRALINE 50 MG TABLET. PO SCH (08:29)
[2019-10-25] MEDS: ASPIRIN 81 MG TAB.CHEW PO SCH (08:29)
[2019-10-25] MEDS: MEMANTINE 10 MG TABLET. PO SCH ×2 (08:29→19:40)
[2019-10-25] MEDS: amLODIPine BESYLATE 5 MG TABLET PO SCH (09:00)
[2019-10-25 15:52] VITALS: BP 136/81
[2019-10-25] MEDS: DONEPEZIL 23 MG TABLET PO SCH (19:40)
[2019-10-25] MEDS: MAGNESIUM HYDROXIDE 2,400 MG/30 ML ORAL.SUSP. PO SCH (19:40)
[2019-10-25] MEDS: MELATONIN 3 MG TABLET PO SCH (19:40)
[2019-10-25] MEDS: MIRTAZAPINE 7.5 MG TABLET. PO SCH (19:40)
[2019-10-25] MEDS: traZODone 50 MG TABLET. PO PRN (19:41)
--- NOTE | 2019-10-25 20:47 | PDOC ---
Exam Note: Jose Eduardo Note: Please also refer to the separate dictated note~for this date of service dictated separately.~Patient seen individually. Discussed the patient with Nursing staff reviewed the chart.~Reviewed interim history and current functioning. Reviewed vital signs,~Labs/ Radiology~and current medications noted below. Continue current treatment with the changes noted in the dictated addendum note Assessment: Vital Signs/I&O: Vital Signs Date Time Temp Pulse Resp B/P (MAP) Pulse Ox O2 Delivery O2 Flow Rate FiO2 10/25/19 15:52 98.2 79 19 136/81 (99) 98 10/22/19 04:49 Room Air I & O 10/24/19 10/24/19 10/25/19 15:00 23:00 07:00 Intake Total 480 ml 220 ml Balance 480 ml 220 ml Labs: Laboratory Tests Test 10/24/19 21:55 White Blood Count 11.6 x10^3/uL (4.0-11.0) H Red Blood Count 4.62 x10^6/uL (4.30-5.70) Hemoglobin 13.9 g/dL (13.0-17.5) Hematocrit 42.3 % (39.0-53.0) Mean Corpuscular Volume 92 fL (79-100) Mean Corpuscular Hemoglobin 30 pg (25-35) Mean Corpuscular Hemoglobin Concent 33 g/dL (31-37) Red Cell Distribution Width 14.2 % (11.5-14.5) Platelet Count 183 x10^3/uL (140-400) Erythrocyte Sedimentation Rate 45 (0-15) H Sodium Level 143 mmol/L (136-145) Potassium Level 4.9 mmol/L (3.5-5.1) Chloride Level 107 mmol/L (98-107) Carbon Dioxide Level 27 mmol/L (21-32) Anion Gap 9 (6-14) Blood Urea Nitrogen 34 mg/dL (8-26) H Creatinine 1.3 mg/dL (0.7-1.3) Estimated GFR (Cockcroft-Gault) 53.1 BUN/Creatinine Ratio 26 (6-20) H Glucose Level 117 mg/dL (70-99) H Calcium Level 8.3 mg/dL (8.5-10.1) L Total Bilirubin 0.6 mg/dL (0.2-1.0) Aspartate Amino Transferase (AST) 21 U/L (15-37) Alanine Aminotransferase (ALT) 21 U/L (16-63) Alkaline Phosphatase 87 U/L (46-116) C-Reactive Protein 50.5 mg/L (0-3.3) H Total Protein 7.0 g/dL (6.4-8.2) Albumin 3.2 g/dL (3.4-5.0) L Albumin/Globulin Ratio 0.8 (1.0-1.7) L Current Medications: I have reviewed the current psychotropics carefully including drug interactions. Risk benefit ratio favors no change other than as noted in my dictated progress note. Diagnosis: Problems: (1) Dementia with behavioral disturbance (2) Anxiety disorder (3) Dementia, vascular, with delusions (4) Dementia, vascular, with depression (5) Dementia in Alzheimer's disease with delusions (6) Dementia in Alzheimer's disease with depression (7) Impulse control disorder MAN VICKERS MD Oct 25, 2019 20:47
--- NOTE | 2019-10-26 02:36 | PN ---
DATE: 10/24/2019 PSYCHIATRIC PROGRESS NOTE This late entry, 10/24/2019, covers elements not covered in my initial note. SUBJECTIVE: I met with the patient evening of 10/24/2019. The patient slept 7 hours previous night. He is extremely hard of hearing, some impairment of ambulation. No CV, , pulmonary, eye system symptoms on review. He remains confused. He did well the previous night. Per nursing report, takes medications whole, but during the day on 10/24/2019, he was combative and suddenly jerked the right arm of a nursing staff. REVIEW OF SYSTEMS: No CV, , pulmonary, eye system symptoms on review. Hard of hearing. Reliability poor. MENTAL STATUS EXAM: Oriented to himself. Insight, judgment, recent and remote memory, attention, concentration, fund of knowledge poor, consistent with his diagnosis. IMPRESSION: Major neurocognitive disorder; Alzheimer, vascular with delusion; depression; behavioral disturbance; anxiety disorder, unspecified; impulse control disorder, unspecified; hard of hearing. PLAN: Continue current psychotropics, Remeron 7.5 mg at bedtime, melatonin 3 mg at bedtime, Ativan p.r.n., Aricept ____ mg a day, Namenda 10 mg b.i.d., Zyprexa p.r.n., trazodone p.r.n., Zoloft 50 mg a day. May consider Depakote as a mood stabilizer depending on how he does over the next day or so with his aggression. MAN VICKERS MD DR: AARON/mannie JOB#: [id number] / [id number]
[2019-10-26 05:48] VITALS: BP 132/70
[2019-10-26] MEDS: LORazepam 0.5 MG TABLET PO PRN (06:42)
[2019-10-26] MEDS: DIVALPROEX 125 MG CAP.SPRINK PO SCH ×2 (08:18→17:14)
[2019-10-26] MEDS: ACETAMINOPHEN 650 MG/20.3 ML SOLUTION. PO SCH ×2 (08:18→19:52)
[2019-10-26] MEDS: ASPIRIN 81 MG TAB.CHEW PO SCH (08:19)
[2019-10-26] MEDS: MEMANTINE 10 MG TABLET. PO SCH ×2 (08:26→19:53)
[2019-10-26] MEDS: POTASSIUM CHLORIDE 20 MEQ TABLET.ER. PO SCH (08:26)
[2019-10-26] MEDS: amLODIPine BESYLATE 5 MG TABLET PO SCH (08:27)
[2019-10-26] MEDS: SERTRALINE 50 MG TABLET. PO SCH (08:27)
[2019-10-26 09:01] VITALS: BP 90/72
[2019-10-26 14:25] LABS: BASO % 0 % (0-3); EOS # 0.3 x10^3/uL (0.0-0.7); EOS % 3 % (0-3); HEMATOCRIT 42.3 % (39.0-53.0); HEMOGLOBIN 13.8 g/dL (13.0-17.5); LYMPH # 2.1 x10^3/uL (1.0-4.8); LYMPH % 20 % (24-48); MEAN CORPUSCULAR HEMOGLOBIN 30 pg (25-35); MEAN CORPUSCULAR HGB CONC 33 g/dL (31-37); MEAN CORPUSCULAR VOLUME 92 fL (79-100); MONO # 0.9 x10^3/uL (0.0-1.1); MONO % 9 % (0-9); NEUT # 6.9 x10^3uL (1.8-7.7); NEUT % 67 % (31-73); PLATELET COUNT 232 x10^3/uL (140-400); RED BLOOD COUNT 4.57 x10^6/uL (4.30-5.70); RED CELL DISTRIBUTION WIDTH 14.7 % (11.5-14.5); WHITE BLOOD COUNT 10.3 x10^3/uL (4.0-11.0)
[2019-10-26 14:33] LABS: ALBUMIN/GLOBULIN RATIO 0.8 (1.0-1.7); CALCIUM 8.5 mg/dL (8.5-10.1); CREATININE 1.3 mg/dL (0.7-1.3); GFR 53.1; POTASSIUM 4.5 mmol/L (3.5-5.1); TOTAL BILIRUBIN 0.5 mg/dL (0.2-1.0); TOTAL PROTEIN 6.9 g/dL (6.4-8.2)
[2019-10-26 15:36] VITALS: BP 130/50
[2019-10-26] MEDS: QUEtiapine 25 MG TABLET. PO SCH (17:16)
[2019-10-26] MEDS: DONEPEZIL 23 MG TABLET PO SCH (19:52)
[2019-10-26] MEDS: MIRTAZAPINE 7.5 MG TABLET. PO SCH (19:52)
[2019-10-26] MEDS: MAGNESIUM HYDROXIDE 2,400 MG/30 ML ORAL.SUSP. PO SCH (19:52)
[2019-10-26] MEDS: MELATONIN 3 MG TABLET PO SCH (19:53)
--- NOTE | 2019-10-26 21:08 | PDOC ---
Exam Note: Jose Eduardo Note: Please also refer to the separate dictated note~for this date of service dictated separately.~Patient seen individually. Discussed the patient with Nursing staff reviewed the chart.~Reviewed interim history and current functioning. Reviewed vital signs,~Labs/ Radiology~and current medications noted below. Continue current treatment with the changes noted in the dictated addendum note Assessment: Vital Signs/I&O: Vital Signs Date Time Temp Pulse Resp B/P (MAP) Pulse Ox O2 Delivery O2 Flow Rate FiO2 10/26/19 15:36 97.1 67 18 130/50 (76) 95 10/22/19 04:49 Room Air I & O 10/25/19 10/25/19 10/26/19 15:00 23:00 07:00 Intake Total 440 ml 240 ml Balance 440 ml 240 ml Labs: Laboratory Tests Test 10/26/19 14:10 White Blood Count 10.3 x10^3/uL (4.0-11.0) Red Blood Count 4.57 x10^6/uL (4.30-5.70) Hemoglobin 13.8 g/dL (13.0-17.5) Hematocrit 42.3 % (39.0-53.0) Mean Corpuscular Volume 92 fL (79-100) Mean Corpuscular Hemoglobin 30 pg (25-35) Mean Corpuscular Hemoglobin Concent 33 g/dL (31-37) Red Cell Distribution Width 14.7 % (11.5-14.5) H Platelet Count 232 x10^3/uL (140-400) Neutrophils (%) (Auto) 67 % (31-73) Lymphocytes (%) (Auto) 20 % (24-48) L Monocytes (%) (Auto) 9 % (0-9) Eosinophils (%) (Auto) 3 % (0-3) Basophils (%) (Auto) 0 % (0-3) Neutrophils # (Auto) 6.9 x10^3uL (1.8-7.7) Lymphocytes # (Auto) 2.1 x10^3/uL (1.0-4.8) Monocytes # (Auto) 0.9 x10^3/uL (0.0-1.1) Eosinophils # (Auto) 0.3 x10^3/uL (0.0-0.7) Basophils # (Auto) 0.0 x10^3/uL (0.0-0.2) Sodium Level 142 mmol/L (136-145) Potassium Level 4.5 mmol/L (3.5-5.1) Chloride Level 109 mmol/L (98-107) H Carbon Dioxide Level 27 mmol/L (21-32) Anion Gap 6 (6-14) Blood Urea Nitrogen 37 mg/dL (8-26) H Creatinine 1.3 mg/dL (0.7-1.3) Estimated GFR (Cockcroft-Gault) 53.1 BUN/Creatinine Ratio 28 (6-20) H Glucose Level 111 mg/dL (70-99) H Calcium Level 8.5 mg/dL (8.5-10.1) Total Bilirubin 0.5 mg/dL (0.2-1.0) Aspartate Amino Transferase (AST) 21 U/L (15-37) Alanine Aminotransferase (ALT) 20 U/L (16-63) Alkaline Phosphatase 93 U/L (46-116) Total Protein 6.9 g/dL (6.4-8.2) Albumin 3.0 g/dL (3.4-5.0) L Albumin/Globulin Ratio 0.8 (1.0-1.7) L Current Medications: Meds: Current Medications Medications (Trade) Dose Ordered Sig/Cathi Route PRN Reason Start Time Stop Time Status Last Admin Dose Admin Divalproex Sodium (Depakote Sprinkles) 125 mg 0900,1700 PO 10/26/19 09:00 10/26/19 17:14 Quetiapine Fumarate (SEROquel) 12.5 mg 0900,1300,1700 PO 10/26/19 17:00 10/26/19 17:16 I have reviewed the current psychotropics carefully including drug interactions. Risk benefit ratio favors no change other than as noted in my dictated progress note. Diagnosis: Problems: (1) Dementia with behavioral disturbance (2) Anxiety disorder (3) Dementia, vascular, with delusions (4) Dementia, vascular, with depression (5) Dementia in Alzheimer's disease with delusions (6) Dementia in Alzheimer's disease with depression (7) Impulse control disorder MAN VICKERS MD Oct 26, 2019 21:07
--- NOTE | 2019-10-27 03:43 | PN ---
DATE: 10/25/2019 This late entry 10/25 covers elements not covered in my initial note. SUBJECTIVE: I met with the patient in the evening of 10/25. The patient slept 6-3/4 hours previous night per CLAUDE Aguilar. He did well in the morning, but by the afternoon, he was confused, disrobing in the day room, extremely hard of hearing, which makes his confusion worse. He received Zyprexa p.r.n. Door checking previous night. He has some cellulitis, with increased white cell count, sed rate and CRP. Will defer to Dr. Valera. REVIEW OF SYSTEMS: No CV, , pulmonary, eye, ENT system symptoms on review. Reliability poor. MENTAL STATUS EXAMINATION: Oriented to himself. Insight, judgment, recent and remote memory, attention, concentration, fund of knowledge poor, consistent with his diagnosis mentioned in my initial note. PLAN: No change from initial note. Treat the cellulitis. We will go ahead and add Depakote Sprinkles 125 mg 9 a.m., 5:00 p.m. Check CBC, CMP, valproic acid level in 3 days. Maintain Remeron 7.5 at bedtime, melatonin 3 mg at bedtime, Aricept 22.5 mg at bedtime, Namenda 10 mg b.i.d., Zyprexa p.r.n., trazodone p.r.n., Zoloft 50 mg a day. MAN VICKERS MD DR: AARON/mannie JOB#: [id number] / [id number]
[2019-10-27 06:02] VITALS: BP 120/64
[2019-10-27] MEDS: ACETAMINOPHEN 650 MG/20.3 ML SOLUTION. PO SCH ×2 (08:18→19:55)
[2019-10-27] MEDS: DIVALPROEX 125 MG CAP.SPRINK PO SCH ×2 (08:18→17:33)
[2019-10-27] MEDS: SERTRALINE 50 MG TABLET. PO SCH (08:19)
[2019-10-27] MEDS: QUEtiapine 25 MG TABLET. PO SCH ×3 (08:19→17:33)
[2019-10-27] MEDS: MEMANTINE 10 MG TABLET. PO SCH ×2 (08:19→19:55)
[2019-10-27] MEDS: POTASSIUM CHLORIDE 20 MEQ TABLET.ER. PO SCH (08:19)
[2019-10-27] MEDS: ASPIRIN 81 MG TAB.CHEW PO SCH (08:19)
[2019-10-27] MEDS: amLODIPine BESYLATE 5 MG TABLET PO SCH (08:23)
[2019-10-27 08:24] VITALS: BP 122/57
[2019-10-27 08:54] LABS: BILIRUBIN,URINE NEG (NEG); CLARITY,URINE CLEAR; COLOR,URINE YELLOW; GLUCOSE,URINE NEG (NEG)
[2019-10-27 08:55] LABS: BACTERIA,URINE MOD /HPF (0-FEW); NITRITE,URINE NEG (NEG); SQUAMOUS EPITHELIAL CELL,UR FEW /LPF; UROBILINOGEN,URINE 0.2 mg/dL (0.2 mg/dL)
--- NOTE | 2019-10-27 09:54 | RAD ---
3 view study right elbow Clinical indications: Bruising. FINDINGS: No joint effusion is seen. No acute fracture or dislocation or lytic process is seen. Prominent traction spur of the olecranon is seen at the attachment of the triceps tendon. No significant soft tissue thickening of the olecranon bursa is evident. IMPRESSION: No acute osseous abnormality. Electronically signed by: Denzel Francois MD (10/27/2019 9:51 AM) [id number]
[2019-10-27 15:48] VITALS: BP 162/89
[2019-10-27] MEDS: DONEPEZIL 23 MG TABLET PO SCH (19:55)
[2019-10-27] MEDS: MELATONIN 3 MG TABLET PO SCH (19:55)
[2019-10-27] MEDS: MIRTAZAPINE 7.5 MG TABLET. PO SCH (19:55)
[2019-10-27] MEDS: NAPROXEN 250 MG TABLET PO SCH (19:55)
[2019-10-27] MEDS: MAGNESIUM HYDROXIDE 2,400 MG/30 ML ORAL.SUSP. PO SCH (19:55)
--- NOTE | 2019-10-27 20:57 | PDOC ---
Exam Note: Jose Eduardo Note: Please also refer to the separate dictated note~for this date of service dictated separately.~Patient seen individually. Discussed the patient with Nursing staff reviewed the chart.~Reviewed interim history and current functioning. Reviewed vital signs,~Labs/ Radiology~and current medications noted below. Continue current treatment with the changes noted in the dictated addendum note Assessment: Vital Signs/I&O: Vital Signs Date Time Temp Pulse Resp B/P (MAP) Pulse Ox O2 Delivery O2 Flow Rate FiO2 10/27/19 15:48 97.4 72 21 162/89 (113) 93 Room Air I & O 10/26/19 10/26/19 10/27/19 15:00 23:00 07:00 Intake Total 600 ml 360 ml 240 ml Balance 600 ml 360 ml 240 ml Labs: Laboratory Tests Test 10/27/19 07:50 Urine Collection Type Unknown Urine Color Yellow Urine Clarity Clear Urine pH 7.0 Urine Specific [place] 1.025 Urine Protein Neg (NEG-TRACE) Urine Glucose (UA) Neg mg/dL (NEG) Urine Ketones (Stick) 15 mg/dL (NEG) Urine Blood Neg (NEG) Urine Nitrite Neg (NEG) Urine Bilirubin Neg (NEG) Urine Urobilinogen Dipstick 0.2 mg/dL (0.2 mg/dL) Urine Leukocyte Esterase Neg (NEG) Urine RBC 1-2 /HPF (0-2) Urine WBC 5-10 /HPF (0-4) Urine Squamous Epithelial Cells Few /LPF Urine Bacteria Mod /HPF (0-FEW) Urine Mucus Mod /LPF Current Medications: Meds: Current Medications Medications (Trade) Dose Ordered Sig/Cathi Route PRN Reason Start Time Stop Time Status Last Admin Dose Admin Naproxen (Naprosyn) 250 mg BID PO 10/27/19 21:00 10/27/19 19:55 I have reviewed the current psychotropics carefully including drug interactions. Risk benefit ratio favors no change other than as noted in my dictated progress note. Diagnosis: Problems: (1) Dementia with behavioral disturbance (2) Anxiety disorder (3) Dementia, vascular, with delusions (4) Dementia, vascular, with depression (5) Dementia in Alzheimer's disease with delusions (6) Dementia in Alzheimer's disease with depression (7) Impulse control disorder MAN VICKERS MD Oct 27, 2019 20:57
[2019-10-28 05:50] VITALS: BP 109/57
--- NOTE | 2019-10-28 09:23 | PN ---
DATE: 10/26/2019 PSYCHIATRIC PROGRESS NOTE This late entry 10/26/2019 covers elements not covered in my initial note. SUBJECTIVE: I met with the patient evening of 10/26/2019. Per CLAUDE Aguilar, the patient slept 9 hours previous night. He has had a very difficult day all day, combative, resistive to cares, drowsy at times. Blood pressure was somewhat low, seems to have a cellulitis on right elbow and Dr. Valera is following this. UA has been checked. Chemistry profile awaited. REVIEW OF SYSTEMS: No CV, , pulmonary, eye, ENT system symptoms on review. Reliability poor. MENTAL STATUS EXAM: Oriented to himself. Insight, judgment, recent and remote memory, attention, concentration, fund of knowledge poor, consistent with his diagnosis. He is restless, anxious, paranoid, labile. LABORATORY DATA: Reviewed. IMPRESSION: Major neurocognitive disorder, Alzheimer, vascular with delusion, depression, behavioral disturbance; anxiety disorder, unspecified; impulse control disorder, unspecified. PLAN: Check UA. Check chemistry profile. Start Seroquel 12.5 mg 9 a.m., 1:00 p.m., 5:00 p.m. as a mood stabilizer and for psychotic symptoms, agitation and aggression. Rest unchanged per initial note. MAN Eulalio VICKERS MD DR: AARON/mannie JOB#: [id number] / [id number]
[2019-10-28] MEDS: ASPIRIN 81 MG TAB.CHEW PO SCH (10:41)
[2019-10-28] MEDS: ACETAMINOPHEN 650 MG/20.3 ML SOLUTION. PO SCH ×2 (10:41→19:36)
[2019-10-28] MEDS: NAPROXEN 250 MG TABLET PO SCH ×2 (10:42→19:36)
[2019-10-28] MEDS: amLODIPine BESYLATE 5 MG TABLET PO SCH (10:42)
[2019-10-28] MEDS: MEMANTINE 10 MG TABLET. PO SCH ×2 (10:43→19:36)
[2019-10-28] MEDS: QUEtiapine 25 MG TABLET. PO SCH ×3 (10:43→17:01)
[2019-10-28] MEDS: SERTRALINE 50 MG TABLET. PO SCH (10:43)
[2019-10-28] MEDS: DIVALPROEX 125 MG CAP.SPRINK PO SCH ×2 (10:43→17:01)
[2019-10-28] MEDS: POTASSIUM CHLORIDE 20 MEQ TABLET.ER. PO SCH (10:43)
[2019-10-28 15:29] VITALS: BP 127/62
--- NOTE | 2019-10-28 16:05 | TX PLAN ---
Interdisciplinary Tx Plan Admission Information Oct 18, 2019 at 17:58 Legal Status (on Admission): Voluntary DPOA/Guardian Name: London Qiu Contact Other Contact Name: [facility]) Other Contact Verified Code Status: DNR Allergies: Coded Allergies: No Known Drug Allergies (Unverified , 10/18/19) Diagnoses Reasons for Admission: Aggressive, Agitated, Combative, Poor impulse control Problem in Patient's Words: Part of the dx natural progression Additional Admission Comments: According to the intake, pt is wandering, resistive to medications, exit seeking, combative to staff, aggressive at times with redirection, hitting staff, pushing them in the wall and throwing people's belongings. Problems Active Problems: Non-compliant with meds Wanders physical aggression/combative Inactive Problems: n/a Pt Strengths/Limitations Ability for [place]: Poor Cognitive Functioning/Ability: Poor Communication Skills/Ability: Poor Financial Resources: Fair Insight/Judgement: Poor Intellectual Ability: Poor Physical Health: Poor Social Skills: Poor Stability in Family: Good Stability in School/Work: Poor Verbal Skills: Poor Discharge Criteria Discharge Criteria: Adequate arrangements @DC, Improved behavior, Improved moo d/thought Preliminary Discharge Plan Preliminary DC Plan: Current Living Arrange. Special Precautions Fall Risk: Low Initial D/C Plan Pt will plan to discharge back to [facility]) Identified Discharge Needs: Pt needs a psychiatrist to follow up with psychiatric medications. Currently Utilized Resources Currently Utilized Resources/P: Has a primary care through the facility Referrals Community Resources: potential for psychiatrist at the time of discharge. Identified Problems/Hx/Goals Objectives/Short-Term Goals Short Term Goals: Dec. Aggression, Dec. Outbursts, Improved Social Skills, Medication Stabilization Short Term Goals in Patient's: Medication management Behavioral management Interventions/Frequency Staff Interventions/Frequency&: Psychiatrist to see pt at least 3x per week. Social work to see pt at least 2x per week. Nursing to complete 15 minute checks daily. Encourage group activities. 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 Pt will take medications in chocolate or vanilla boost and is mostly compliant. Pt is found sleeping a lot during the day in random places (i.e. chairs in the hallway). Pt has little to no group participation; may be more beneficial to complete 1:1 activities. With pt current behavior, he may not be able to discharge back to [facility], as his aggression and behaviors have yet to decrease. Pt is on Depakote 125mg q BID and Seroquel 12.5 mg TID. Labs are to be drawn Friday morning. SW will continue to follow up with pt son and the facility with updates. ELOS is for 10 days. MARIZOL HIGHTOWER Oct 28, 2019 16:05
[2019-10-28] MEDS: DONEPEZIL 23 MG TABLET PO SCH (19:36)
[2019-10-28] MEDS: MIRTAZAPINE 7.5 MG TABLET. PO SCH (19:36)
[2019-10-28] MEDS: MAGNESIUM HYDROXIDE 2,400 MG/30 ML ORAL.SUSP. PO SCH (19:36)
[2019-10-28] MEDS: MELATONIN 3 MG TABLET PO SCH (19:36)
[2019-10-28] MEDS: traZODone 50 MG TABLET. PO PRN (19:36)
--- NOTE | 2019-10-28 21:04 | PDOC ---
Exam Note: Jose Eduardo Note: Please also refer to the separate dictated note~for this date of service dictated separately.~Patient seen individually. Discussed the patient with Nursing staff reviewed the chart.~Reviewed interim history and current functioning. Reviewed vital signs,~Labs/ Radiology~and current medications noted below. Continue current treatment with the changes noted in the dictated addendum note Assessment: Vital Signs/I&O: Vital Signs Date Time Temp Pulse Resp B/P (MAP) Pulse Ox O2 Delivery O2 Flow Rate FiO2 10/28/19 15:29 97.7 68 16 127/62 (83) 95 Room Air I & O 10/27/19 10/27/19 10/28/19 15:00 23:00 07:00 Intake Total 360 ml 240 ml Balance 360 ml 240 ml Current Medications: I have reviewed the current psychotropics carefully including drug interactions. Risk benefit ratio favors no change other than as noted in my dictated progress note. Diagnosis: Problems: (1) Dementia with behavioral disturbance (2) Anxiety disorder (3) Dementia, vascular, with delusions (4) Dementia, vascular, with depression (5) Dementia in Alzheimer's disease with delusions (6) Dementia in Alzheimer's disease with depression (7) Impulse control disorder MAN VICKERS MD Oct 28, 2019 21:04
[2019-10-29 05:54] VITALS: BP 159/63
[2019-10-29] MEDS: ACETAMINOPHEN 650 MG/20.3 ML SOLUTION. PO SCH ×2 (09:36→20:47)
[2019-10-29] MEDS: QUEtiapine 25 MG TABLET. PO SCH ×3 (09:37→18:10)
[2019-10-29] MEDS: amLODIPine BESYLATE 5 MG TABLET PO SCH (09:37)
[2019-10-29] MEDS: ASPIRIN 81 MG TAB.CHEW PO SCH (09:38)
[2019-10-29] MEDS: DIVALPROEX 125 MG CAP.SPRINK PO SCH ×2 (09:38→18:10)
[2019-10-29] MEDS: NAPROXEN 250 MG TABLET PO SCH ×2 (09:40→20:47)
[2019-10-29] MEDS: MEMANTINE 10 MG TABLET. PO SCH ×2 (09:41→20:47)
[2019-10-29] MEDS: SERTRALINE 50 MG TABLET. PO SCH (09:41)
[2019-10-29] MEDS: POTASSIUM CHLORIDE 20 MEQ TABLET.ER. PO SCH (09:41)
[2019-10-29 12:37] LABS: VAL ACID 12 mcg/mL (50-100)
[2019-10-29 15:44] VITALS: BP 133/62
[2019-10-29] MEDS: MELATONIN 3 MG TABLET PO SCH (20:47)
[2019-10-29] MEDS: MIRTAZAPINE 7.5 MG TABLET. PO SCH (20:47)
[2019-10-29] MEDS: DONEPEZIL 23 MG TABLET PO SCH (20:47)
[2019-10-29] MEDS: MAGNESIUM HYDROXIDE 2,400 MG/30 ML ORAL.SUSP. PO SCH (20:47)
[2019-10-29] MEDS: CARBIDOPA/LEVODOPA 25/100MG TABLET PO SCH (20:52)
--- NOTE | 2019-10-29 21:05 | PDOC ---
Exam Note: Jose Eduardo Note: Please also refer to the separate dictated note~for this date of service dictated separately.~Patient seen individually. Discussed the patient with Nursing staff reviewed the chart.~Reviewed interim history and current functioning. Reviewed vital signs,~Labs/ Radiology~and current medications noted below. Continue current treatment with the changes noted in the dictated addendum note Assessment: Vital Signs/I&O: Vital Signs Date Time Temp Pulse Resp B/P (MAP) Pulse Ox O2 Delivery O2 Flow Rate FiO2 10/29/19 15:44 97.4 64 20 133/62 (85) 99 10/28/19 15:29 Room Air I & O 10/28/19 10/28/19 10/29/19 15:00 23:00 07:00 Intake Total 480 ml 240 ml Balance 480 ml 240 ml Labs: Laboratory Tests Test 10/29/19 12:13 Valproic Acid Level 12 mcg/mL (50-100) L Valproic Acid Last Dose Date 10/28/19 Valproic Acid Last Dose Time 1700 Current Medications: Meds: Current Medications Medications (Trade) Dose Ordered Sig/Cathi Route PRN Reason Start Time Stop Time Status Last Admin Dose Admin Carbidopa/Levodopa (Sinemet 25/100) 1 tab TID PO 10/29/19 21:00 10/29/19 20:52 I have reviewed the current psychotropics carefully including drug interactions. Risk benefit ratio favors no change other than as noted in my dictated progress note. Diagnosis: Problems: (1) Dementia with behavioral disturbance (2) Anxiety disorder (3) Dementia, vascular, with delusions (4) Dementia, vascular, with depression (5) Dementia in Alzheimer's disease with delusions (6) Dementia in Alzheimer's disease with depression (7) Impulse control disorder MAN VICKERS MD Oct 29, 2019 21:05
--- NOTE | 2019-10-29 23:00 | PN ---
DATE: 10/27/2019 PSYCHIATRIC PROGRESS NOTE This late entry 10/27/2019 covers elements not covered in my initial note. SUBJECTIVE: I met with the patient evening of 10/27/2019. Per CLAUDE Aguilar, patient slept 7 hours previous night. 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 We will check a UA for culture and sensitivity. X-ray of right elbow shows bursitis. We will defer to Dr. Valera. Fluids are being pushed. REVIEW OF SYSTEMS: No CV, , pulmonary, eye, ENT system symptoms on review. He is very hard of hearing. Reliability poor. MENTAL STATUS EXAM: Oriented to himself. Insight, judgment, recent and remote memory, attention, concentration, fund of knowledge poor, consistent with his diagnosis mentioned in my initial note. PLAN: No change from initial note. MAN Eulalio VICKERS MD DR: AARON/mannie JOB#: [id number] / [id number]
--- NOTE | 2019-10-30 00:41 | PN ---
DATE: 10/28/2019 This late entry 10/28 covers elements not covered in my initial note. SUBJECTIVE: I met with the patient evening of 10/28 and staffed at a treatment team meeting with the entire team in the morning. The patient's elbow shows bursitis, will defer to Dr. Valera. Slept 7 hours. Appetite 75%. Confused, drowsy, hard of hearing, combative with family during visits. REVIEW OF SYSTEMS: No CV, , pulmonary, eye, ENT system symptoms on review. Reliability poor. MENTAL STATUS EXAMINATION: Oriented to himself. Insight, judgment, recent and remote memory, attention, concentration, fund of knowledge poor, consistent with his diagnosis mentioned in my initial note. PLAN: No change from initial note. MAN Eulalio VICKERS MD DR: AARON/mannie JOB#: [id number] / [id number]
[2019-10-30 06:14] VITALS: BP 100/65
[2019-10-30] MEDS ORDERED: NYSTATIN TOPICAL POWDER 15GM BOTTLE. TP ONE (06:15)
[2019-10-30] MEDS: ACETAMINOPHEN 650 MG/20.3 ML SOLUTION. PO SCH ×2 (08:46→20:19)
[2019-10-30] MEDS: NAPROXEN 250 MG TABLET PO SCH ×2 (08:47→19:56)
[2019-10-30] MEDS: DIVALPROEX 125 MG CAP.SPRINK PO SCH ×2 (08:47→17:23)
[2019-10-30] MEDS: ASPIRIN 81 MG TAB.CHEW PO SCH (08:47)
[2019-10-30] MEDS: POTASSIUM CHLORIDE 20 MEQ TABLET.ER. PO SCH (08:48)
[2019-10-30] MEDS: amLODIPine BESYLATE 5 MG TABLET PO SCH (08:48)
[2019-10-30] MEDS: SERTRALINE 50 MG TABLET. PO SCH (08:48)
[2019-10-30] MEDS: CARBIDOPA/LEVODOPA 25/100MG TABLET PO SCH ×3 (08:48→19:55)
[2019-10-30] MEDS: QUEtiapine 25 MG TABLET. PO SCH ×3 (08:48→17:23)
[2019-10-30] MEDS: MEMANTINE 10 MG TABLET. PO SCH ×2 (08:50→19:55)
[2019-10-30] MEDS: CHOLECALCIFEROL (VITAMIN D3) 50,000 UNIT CAPSULE PO SCH (08:50)
[2019-10-30] MEDS: NYSTATIN TOPICAL POWDER 15GM BOTTLE. TP SCH ×2 (08:50→20:20)
[2019-10-30 16:06] VITALS: BP 111/68
[2019-10-30] MEDS: DONEPEZIL 23 MG TABLET PO SCH (19:55)
[2019-10-30] MEDS: MELATONIN 3 MG TABLET PO SCH (19:55)
[2019-10-30] MEDS: MIRTAZAPINE 7.5 MG TABLET. PO SCH (19:55)
[2019-10-30] MEDS: traZODone 50 MG TABLET. PO PRN (19:56)
[2019-10-30] MEDS: MAGNESIUM HYDROXIDE 2,400 MG/30 ML ORAL.SUSP. PO SCH (20:19)
--- NOTE | 2019-10-30 21:42 | PDOC ---
Exam Note: Jose Eduardo Note: Please also refer to the separate dictated note~for this date of service dictated separately.~Patient seen individually. Discussed the patient with Nursing staff reviewed the chart.~Reviewed interim history and current functioning. Reviewed vital signs,~Labs/ Radiology~and current medications noted below. Continue current treatment with the changes noted in the dictated addendum note Assessment: Vital Signs/I&O: Vital Signs Date Time Temp Pulse Resp B/P (MAP) Pulse Ox O2 Delivery O2 Flow Rate FiO2 10/30/19 16:06 97.6 80 18 111/68 (82) 93 10/28/19 15:29 Room Air I & O 10/29/19 10/29/19 10/30/19 15:00 23:00 07:00 Intake Total 840 ml 240 ml Balance 840 ml 240 ml Current Medications: Meds: Current Medications Medications (Trade) Dose Ordered Sig/Cathi Route PRN Reason Start Time Stop Time Status Last Admin Dose Admin Nystatin (Nystop) 1 tangela BID TP 10/30/19 09:00 10/30/19 20:20 I have reviewed the current psychotropics carefully including drug interactions. Risk benefit ratio favors no change other than as noted in my dictated progress note. Diagnosis: Problems: (1) Dementia with behavioral disturbance (2) Anxiety disorder (3) Dementia, vascular, with delusions (4) Dementia, vascular, with depression (5) Dementia in Alzheimer's disease with delusions (6) Dementia in Alzheimer's disease with depression (7) Impulse control disorder MAN VICKERS MD Oct 30, 2019 21:42
[2019-10-31 06:46] VITALS: BP 154/67
[2019-10-31] MEDS: ACETAMINOPHEN 650 MG/20.3 ML SOLUTION. PO SCH ×2 (08:15→20:01)
[2019-10-31] MEDS: amLODIPine BESYLATE 5 MG TABLET PO SCH (08:16)
[2019-10-31] MEDS: CARBIDOPA/LEVODOPA 25/100MG TABLET PO SCH ×3 (08:16→20:02)
[2019-10-31] MEDS: DIVALPROEX 125 MG CAP.SPRINK PO SCH ×2 (08:16→17:33)
[2019-10-31] MEDS: NAPROXEN 250 MG TABLET PO SCH ×2 (08:16→20:01)
[2019-10-31] MEDS: ASPIRIN 81 MG TAB.CHEW PO SCH (08:16)
[2019-10-31] MEDS: MEMANTINE 10 MG TABLET. PO SCH ×2 (08:16→20:01)
[2019-10-31] MEDS: QUEtiapine 25 MG TABLET. PO SCH ×3 (08:17→17:33)
[2019-10-31] MEDS: POTASSIUM CHLORIDE 20 MEQ TABLET.ER. PO SCH (08:17)
[2019-10-31] MEDS: SERTRALINE 50 MG TABLET. PO SCH (08:17)
[2019-10-31] MEDS: NYSTATIN TOPICAL POWDER 15GM BOTTLE. TP SCH ×2 (09:00→20:02)
[2019-10-31 10:30] LABS: HEMATOCRIT 38.1 % (39.0-53.0); HEMOGLOBIN 12.6 g/dL (13.0-17.5); RED BLOOD COUNT 4.2 x10^6/uL (4.30-5.70); RED CELL DISTRIBUTION WIDTH 14.3 % (11.5-14.5); WHITE BLOOD COUNT 8.2 x10^3/uL (4.0-11.0)
[2019-10-31 10:58] LABS: ALBUMIN/GLOBULIN RATIO 0.8 (1.0-1.7); CALCIUM 8.6 mg/dL (8.5-10.1); CREATININE 1.3 mg/dL (0.7-1.3); GFR 53.1; POTASSIUM 4.5 mmol/L (3.5-5.1); TOTAL BILIRUBIN 0.5 mg/dL (0.2-1.0); TOTAL PROTEIN 6.6 g/dL (6.4-8.2)
[2019-10-31 14:30] VITALS: BP 96/56
[2019-10-31 15:49] VITALS: BP 137/80
[2019-10-31] MEDS: MAGNESIUM HYDROXIDE 2,400 MG/30 ML ORAL.SUSP. PO SCH (20:01)
[2019-10-31] MEDS: MIRTAZAPINE 7.5 MG TABLET. PO SCH (20:01)
[2019-10-31] MEDS: MELATONIN 3 MG TABLET PO SCH (20:01)
[2019-10-31] MEDS: DONEPEZIL 23 MG TABLET PO SCH (20:01)
[2019-10-31] MEDS: AMOXICILLIN/K CLAV 500/125MG TABLET. PO SCH (20:02)
--- NOTE | 2019-10-31 20:52 | PDOC ---
Exam Note: Jose Eduardo Note: Please also refer to the separate dictated note~for this date of service dictated separately.~Patient seen individually. Discussed the patient with Nursing staff reviewed the chart.~Reviewed interim history and current functioning. Reviewed vital signs,~Labs/ Radiology~and current medications noted below. Continue current treatment with the changes noted in the dictated addendum note Assessment: Vital Signs/I&O: Vital Signs Date Time Temp Pulse Resp B/P (MAP) Pulse Ox O2 Delivery O2 Flow Rate FiO2 10/31/19 15:49 97.2 63 20 137/80 (99) 96 10/28/19 15:29 Room Air I & O 10/30/19 10/30/19 10/31/19 15:00 23:00 07:00 Intake Total 480 ml 240 ml Balance 480 ml 240 ml Labs: Laboratory Tests Test 10/31/19 10:08 White Blood Count 8.2 x10^3/uL (4.0-11.0) Red Blood Count 4.20 x10^6/uL (4.30-5.70) L Hemoglobin 12.6 g/dL (13.0-17.5) L Hematocrit 38.1 % (39.0-53.0) L Mean Corpuscular Volume 91 fL (79-100) Mean Corpuscular Hemoglobin 30 pg (25-35) Mean Corpuscular Hemoglobin Concent 33 g/dL (31-37) Red Cell Distribution Width 14.3 % (11.5-14.5) Platelet Count 249 x10^3/uL (140-400) Erythrocyte Sedimentation Rate 45 (0-15) H Sodium Level 148 mmol/L (136-145) H Potassium Level 4.5 mmol/L (3.5-5.1) Chloride Level 112 mmol/L (98-107) H Carbon Dioxide Level 29 mmol/L (21-32) Anion Gap 7 (6-14) Blood Urea Nitrogen 50 mg/dL (8-26) H Creatinine 1.3 mg/dL (0.7-1.3) Estimated GFR (Cockcroft-Gault) 53.1 BUN/Creatinine Ratio 38 (6-20) H Glucose Level 110 mg/dL (70-99) H Calcium Level 8.6 mg/dL (8.5-10.1) Total Bilirubin 0.5 mg/dL (0.2-1.0) Aspartate Amino Transferase (AST) 25 U/L (15-37) Alanine Aminotransferase (ALT) 11 U/L (16-63) L Alkaline Phosphatase 93 U/L (46-116) Total Protein 6.6 g/dL (6.4-8.2) Albumin 3.0 g/dL (3.4-5.0) L Albumin/Globulin Ratio 0.8 (1.0-1.7) L Current Medications: Meds: Current Medications Medications (Trade) Dose Ordered Sig/Cathi Route PRN Reason Start Time Stop Time Status Last Admin Dose Admin Amoxicillin/ Clavulanate Potassium (Augmentin 500/ 125mg) 1 tab TID PO 10/31/19 18:00 11/07/19 17:59 10/31/19 20:02 I have reviewed the current psychotropics carefully including drug interactions. Risk benefit ratio favors no change other than as noted in my dictated progress note. Diagnosis: Problems: (1) Dementia with behavioral disturbance (2) Anxiety disorder (3) Dementia, vascular, with delusions (4) Dementia, vascular, with depression (5) Dementia in Alzheimer's disease with delusions (6) Dementia in Alzheimer's disease with depression (7) Impulse control disorder MAN VICKERS MD Oct 31, 2019 20:52
--- NOTE | 2019-11-01 01:39 | PN ---
DATE: 10/29/2019 PSYCHIATRIC PROGRESS NOTE This late entry 10/29/2019 covers elements not covered in my initial note. SUBJECTIVE: I met with the patient in the evening of 10/29/2019. Per CLAUDE Echevarria, the patient slept 7-1/2 hours previous night. He was combative previous night, drowsy during the day on 10/29/2019, compliant with medications. He has had some muscle stiffness. We will consult Dr. Prabhakar, Neurology for this. Urine has reflex to culture, this may account for some of his increased confusion as well. REVIEW OF SYSTEMS: No CV, , pulmonary, eye, ENT system symptoms on review. Reliability poor. MENTAL STATUS EXAM: Oriented to himself. Insight, judgment, recent and remote memory, attention, concentration, fund of knowledge poor, consistent with his diagnosis mentioned in my initial note. PLAN: No change from initial note. Treat UTI once we receive the results. Consult Neurology. Maintain Aricept, melatonin, Remeron, Namenda, Zyprexa p.r.n., trazodone p.r.n., Seroquel. MAN Eulalio VICKERS MD DR: AARON/mannie JOB#: [id number] / [id number]
--- NOTE | 2019-11-01 03:01 | PN ---
DATE: 10/30/2019 PSYCHIATRIC PROGRESS NOTE. This late entry of 10/30/2019 covers the elements not covered in my initial note. SUBJECTIVE: I met with the patient in the evening of 10/30/2019. The patient slept for 4-3/4 hours previous night. The patient remains confused, somewhat delirious at times. We are awaiting the results of the culture and sensitivity to determine if this could be compounding his confusion consequent to UTI. He put himself on the floor on 10/30/2019 and previous night was "horrible" per nursing report. He was quite labile and agitated. REVIEW OF SYSTEMS: No CV, , pulmonary, eye, ENT system symptoms on review. Reliability is poor. MENTAL STATUS EXAM: Oriented to himself. Insight, judgment, recent and remote memory, attention, concentration, fund of knowledge are poor, consistent with his diagnosis mentioned in my initial note. IMPRESSION: Major neurocognitive disorder, Alzheimer, vascular with delusion; depression; behavioral disturbance; anxiety disorder, unspecified; impulse control disorder, unspecified; rest unchanged. PLAN: No change from initial note. Check CBC and CMP. Await UA, C and S, and treat as indicated. Rest unchanged. MAN VICKERS MD DR: AARON/mannie JOB#: [id number] / [id number]
[2019-11-01 05:57] VITALS: BP 158/75
[2019-11-01] MEDS: ACETAMINOPHEN 650 MG/20.3 ML SOLUTION. PO SCH ×2 (08:31→20:29)
[2019-11-01] MEDS: CARBIDOPA/LEVODOPA 25/100MG TABLET PO SCH ×4 (08:32→20:29)
[2019-11-01] MEDS: AMOXICILLIN/K CLAV 500/125MG TABLET. PO SCH ×3 (08:32→14:00)
[2019-11-01] MEDS: DIVALPROEX 125 MG CAP.SPRINK PO SCH ×2 (08:32→17:00)
[2019-11-01] MEDS: NYSTATIN TOPICAL POWDER 15GM BOTTLE. TP SCH ×2 (08:32→20:29)
[2019-11-01] MEDS: POTASSIUM CHLORIDE 20 MEQ TABLET.ER. PO SCH (08:32)
[2019-11-01] MEDS: QUEtiapine 25 MG TABLET. PO SCH ×4 (08:32→17:00)
[2019-11-01] MEDS: ASPIRIN 81 MG TAB.CHEW PO SCH (08:32)
[2019-11-01] MEDS: SERTRALINE 50 MG TABLET. PO SCH (08:33)
[2019-11-01] MEDS: MEMANTINE 10 MG TABLET. PO SCH ×2 (08:33→20:28)
[2019-11-01] MEDS: amLODIPine BESYLATE 5 MG TABLET PO SCH (08:33)
[2019-11-01] MEDS: NAPROXEN 250 MG TABLET PO SCH ×2 (08:33→20:29)
[2019-11-01 15:51] VITALS: BP 138/82
[2019-11-01] MEDS: MELATONIN 3 MG TABLET PO SCH (20:28)
[2019-11-01] MEDS: MIRTAZAPINE 7.5 MG TABLET. PO SCH (20:29)
[2019-11-01] MEDS: MAGNESIUM HYDROXIDE 2,400 MG/30 ML ORAL.SUSP. PO SCH (20:29)
[2019-11-01] MEDS: DONEPEZIL 23 MG TABLET PO SCH (20:29)
[2019-11-01] MEDS: traZODone 50 MG TABLET. PO PRN (20:29)
[2019-11-01] MEDS: LACTOBACILLUS RHAMNOSUS GG 1 CAPSULE. PO SCH (20:30)
[2019-11-01] MEDS ORDERED: PENICILLIN G BENZATHINE LA 1,200,000 UNIT/2 ML DISP.SYRIN. IM ONE (21:00)
--- NOTE | 2019-11-01 21:12 | PDOC ---
Exam Note: Jose Eduardo Note: Please also refer to the separate dictated note~for this date of service dictated separately.~Patient seen individually. Discussed the patient with Nursing staff reviewed the chart.~Reviewed interim history and current functioning. Reviewed vital signs,~Labs/ Radiology~and current medications noted below. Continue current treatment with the changes noted in the dictated addendum note Assessment: Vital Signs/I&O: Vital Signs Date Time Temp Pulse Resp B/P (MAP) Pulse Ox O2 Delivery O2 Flow Rate FiO2 11/01/19 15:51 97.6 67 17 138/82 (100) 94 Room Air I & O 10/31/19 10/31/19 11/01/19 15:00 23:00 07:00 Intake Total 720 ml 120 ml Balance 720 ml 120 ml Current Medications: Meds: Current Medications Medications (Trade) Dose Ordered Sig/Cathi Route PRN Reason Start Time Stop Time Status Last Admin Dose Admin Penicillin G Benzathine (Bicillin L-A) 2,400,000 unit 1X ONCE IM 11/01/19 21:00 11/01/19 21:01 DC 11/01/19 21:08 I have reviewed the current psychotropics carefully including drug interactions. Risk benefit ratio favors no change other than as noted in my dictated progress note. Diagnosis: Problems: (1) Dementia with behavioral disturbance (2) Anxiety disorder (3) Dementia, vascular, with delusions (4) Dementia, vascular, with depression (5) Dementia in Alzheimer's disease with delusions (6) Dementia in Alzheimer's disease with depression (7) Impulse control disorder MAN VICKERS MD Nov 01, 2019 21:12
--- NOTE | 2019-11-02 01:50 | PN ---
DATE: 10/31/2019 PSYCHIATRIC PROGRESS NOTE This late entry 10/31/2019 covers elements not covered in my initial note. SUBJECTIVE: I met with the patient evening of 10/31/2019. Per CLAUDE Milligan, the patient slept 6-1/4 hours previous night. He did have a fall, received a cut above his right upper eyebrow. Steri-Strips have been applied. No stitches needed, deferred to Dr. Valera. He was leaning forward and fell out of his chair here. Now, he remains on line of sight. He has also been started on Augmentin for his UTI after urine C and S was returned. REVIEW OF SYSTEMS: No CV, , pulmonary, eye, ENT system symptoms on review. Very hard of hearing. Reliability poor. MENTAL STATUS EXAM: Oriented to himself. Insight, judgment, recent and remote memory, attention, concentration, fund of knowledge poor, consistent with his diagnosis. IMPRESSION: Major neurocognitive disorder, Alzheimer, vascular with delusion, depression, behavioral disturbance; anxiety disorder, unspecified; impulse control disorder, unspecified; urinary tract infection. PLAN: Continue psychotropics from initial note. Treat the UTI. Adjust further as clinically indicated. MAN VICKERS MD DR: AARON/mannie JOB#: [id number] / [id number]
[2019-11-02 05:46] VITALS: BP 133/63
[2019-11-02] MEDS: DIVALPROEX 125 MG CAP.SPRINK PO SCH ×3 (09:00→17:46)
[2019-11-02] MEDS: QUEtiapine 25 MG TABLET. PO SCH ×4 (09:00→17:46)
[2019-11-02] MEDS: ACETAMINOPHEN 650 MG/20.3 ML SOLUTION. PO SCH ×2 (11:53→19:24)
[2019-11-02] MEDS: NYSTATIN TOPICAL POWDER 15GM BOTTLE. TP SCH ×2 (11:53→19:25)
[2019-11-02] MEDS: ASPIRIN 81 MG TAB.CHEW PO SCH (11:54)
[2019-11-02] MEDS: POTASSIUM CHLORIDE 20 MEQ TABLET.ER. PO SCH (11:54)
[2019-11-02] MEDS: CARBIDOPA/LEVODOPA 25/100MG TABLET PO SCH ×3 (11:54→19:25)
[2019-11-02] MEDS: LACTOBACILLUS RHAMNOSUS GG 1 CAPSULE. PO SCH ×2 (11:54→19:24)
[2019-11-02] MEDS: MEMANTINE 10 MG TABLET. PO SCH ×2 (11:55→19:25)
[2019-11-02] MEDS: NAPROXEN 250 MG TABLET PO SCH ×2 (11:55→19:24)
[2019-11-02] MEDS: amLODIPine BESYLATE 5 MG TABLET PO SCH (11:55)
[2019-11-02] MEDS: SERTRALINE 50 MG TABLET. PO SCH (11:56)
[2019-11-02 15:46] VITALS: BP 147/78
[2019-11-02] MEDS: MAGNESIUM HYDROXIDE 2,400 MG/30 ML ORAL.SUSP. PO SCH (19:24)
[2019-11-02] MEDS: DONEPEZIL 23 MG TABLET PO SCH (19:25)
[2019-11-02] MEDS: MIRTAZAPINE 7.5 MG TABLET. PO SCH (19:25)
[2019-11-02] MEDS: MELATONIN 3 MG TABLET PO SCH (19:25)
--- NOTE | 2019-11-02 21:16 | PDOC ---
Exam Note: Jose Eduardo Note: Please also refer to the separate dictated note~for this date of service dictated separately.~Patient seen individually. Discussed the patient with Nursing staff reviewed the chart.~Reviewed interim history and current functioning. Reviewed vital signs,~Labs/ Radiology~and current medications noted below. Continue current treatment with the changes noted in the dictated addendum note Assessment: Vital Signs/I&O: Vital Signs Date Time Temp Pulse Resp B/P (MAP) Pulse Ox O2 Delivery O2 Flow Rate FiO2 11/02/19 15:46 97.4 51 16 147/78 (101) 95 11/01/19 15:51 Room Air I & O 11/01/19 11/01/19 11/02/19 15:00 23:00 07:00 Intake Total 240 ml 0 ml Balance 240 ml 0 ml Current Medications: I have reviewed the current psychotropics carefully including drug interactions. Risk benefit ratio favors no change other than as noted in my dictated progress note. Diagnosis: Problems: (1) Dementia with behavioral disturbance (2) Anxiety disorder (3) Dementia, vascular, with delusions (4) Dementia, vascular, with depression (5) Dementia in Alzheimer's disease with delusions (6) Dementia in Alzheimer's disease with depression (7) Impulse control disorder MAN VICKERS MD Nov 02, 2019 21:16
--- NOTE | 2019-11-03 01:32 | PN ---
DATE: 11/01/2019 PSYCHIATRIC PROGRESS NOTE This late entry 11/01/2019 covers elements not covered in my initial note. SUBJECTIVE: I met with the patient in the evening of 11/01/2019. The patient slept 7-1/4 hours previous night per CLAUDE Olivarez. He was agitated in the morning briefly and then pleasant after that, irritable, combative as the day went on. Augmentin has been started for his UTI, received Zyprexa p.r.n. REVIEW OF SYSTEMS: Hard of hearing. No CV, , pulmonary, eye, ENT system symptoms on review. Reliability poor. MENTAL STATUS EXAM: Oriented to himself. Insight, judgment, recent and remote memory, attention, concentration, fund of knowledge poor, consistent with his diagnosis mentioned in my initial note. PLAN: No change from initial note. MAN Eulalio VICKERS MD DR: AARON/mannie JOB#: [id number] / [id number]
[2019-11-03 05:49] VITALS: BP 106/52
[2019-11-03] MEDS: NYSTATIN TOPICAL POWDER 15GM BOTTLE. TP SCH ×2 (09:00→19:24)
[2019-11-03] MEDS: QUEtiapine 25 MG TABLET. PO SCH ×3 (10:19→17:37)
[2019-11-03] MEDS: ACETAMINOPHEN 650 MG/20.3 ML SOLUTION. PO SCH ×2 (10:19→19:23)
[2019-11-03] MEDS: CARBIDOPA/LEVODOPA 25/100MG TABLET PO SCH ×3 (10:19→19:24)
[2019-11-03] MEDS: DIVALPROEX 125 MG CAP.SPRINK PO SCH ×2 (10:19→17:38)
[2019-11-03] MEDS: SERTRALINE 50 MG TABLET. PO SCH (10:19)
[2019-11-03] MEDS: NAPROXEN 250 MG TABLET PO SCH ×2 (10:20→19:24)
[2019-11-03] MEDS: POTASSIUM CHLORIDE 20 MEQ TABLET.ER. PO SCH (10:21)
[2019-11-03] MEDS: LACTOBACILLUS RHAMNOSUS GG 1 CAPSULE. PO SCH ×2 (10:22→19:24)
[2019-11-03] MEDS: amLODIPine BESYLATE 5 MG TABLET PO SCH (10:22)
[2019-11-03] MEDS: MEMANTINE 10 MG TABLET. PO SCH ×2 (10:22→19:24)
[2019-11-03] MEDS: ASPIRIN 81 MG TAB.CHEW PO SCH (10:22)
[2019-11-03 15:54] VITALS: BP 98/64
[2019-11-03] MEDS: MAGNESIUM HYDROXIDE 2,400 MG/30 ML ORAL.SUSP. PO SCH (19:23)
[2019-11-03] MEDS: MELATONIN 3 MG TABLET PO SCH (19:24)
[2019-11-03] MEDS: MIRTAZAPINE 7.5 MG TABLET. PO SCH (19:24)
[2019-11-03] MEDS: DONEPEZIL 23 MG TABLET PO SCH (19:24)
--- NOTE | 2019-11-03 21:50 | PN ---
DATE: PSYCHIATRIC PROGRESS NOTE This late entry 11/02/2019 covers the elements not covered in my initial note. SUBJECTIVE: I met with the patient in the evening of 11/02/2019. Per CLAUDE Canseco, the patient slept 8-3/4 hours previous night and then some earlier in the morning. Previous night, he was combative, slept till 11:30 a.m., restless, combative, hitting, kicking nursing staff. He did eat lunch and his antibiotics have been changed from Augmentin to IM penicillin for his UTI to help with compliance. REVIEW OF SYSTEMS: No CV, , pulmonary, eye, ENT system symptoms on review. Reliability is poor. MENTAL STATUS EXAM: Oriented to himself. Insight, judgment, recent and remote memory, attention, concentration, fund of knowledge poor, consistent with his diagnosis mentioned in my initial note. IMPRESSION: Major neurocognitive disorder, Alzheimer, vascular with delusion, depression, behavioral disturbance; anxiety disorder, unspecified; impulse control disorder, unspecified; urinary tract infection. PLAN: Treat the UTI. Continue rest of the psychotropics unchanged. If behaviors persist despite resolution of UTI, we will increase his Depakote to reach therapeutic level and also perhaps the Seroquel. MAN VICKERS MD DR: AARON/mannie JOB#: [id number] / [id number]
--- NOTE | 2019-11-03 22:05 | PDOC ---
Exam Note: Jose Eduardo Note: Please also refer to the separate dictated note~for this date of service dictated separately.~Patient seen individually. Discussed the patient with Nursing staff reviewed the chart.~Reviewed interim history and current functioning. Reviewed vital signs,~Labs/ Radiology~and current medications noted below. Continue current treatment with the changes noted in the dictated addendum note Assessment: Vital Signs/I&O: Vital Signs Date Time Temp Pulse Resp B/P (MAP) Pulse Ox O2 Delivery O2 Flow Rate FiO2 11/03/19 15:54 97.1 68 20 98/64 (75) 11/03/19 05:49 94 11/01/19 15:51 Room Air I & O 11/02/19 11/02/19 11/03/19 15:00 23:00 07:00 Intake Total 360 ml 580 ml Balance 360 ml 580 ml Current Medications: I have reviewed the current psychotropics carefully including drug interactions. Risk benefit ratio favors no change other than as noted in my dictated progress note. Diagnosis: Problems: (1) Dementia with behavioral disturbance (2) Anxiety disorder (3) Dementia, vascular, with delusions (4) Dementia, vascular, with depression (5) Dementia in Alzheimer's disease with delusions (6) Dementia in Alzheimer's disease with depression (7) Impulse control disorder MAN VICKERS MD Nov 03, 2019 22:05
--- NOTE | 2019-11-04 04:06 | RAD ---
Left hand 3 views portable: Reason for examination: Swollen left pinky. No acute fracture or dislocation is seen. The bone density is normal. No abnormal periosteal reaction is seen. There are some degenerative changes at cerebral interphalangeal joints. This is slightly more prominent at the proximal interphalangeal joint of the fifth digit. IMPRESSION: Degenerative changes at several interphalangeal joints which is slightly more prominent at the proximal interphalangeal joint of the fifth digit. No acute bony abnormality seen. Electronically signed by: Pina Alanis MD (11/04/2019 4:03 AM) [facility] [id number]
[2019-11-04 06:35] VITALS: BP 159/74
[2019-11-04] MEDS: ACETAMINOPHEN 650 MG/20.3 ML SOLUTION. PO SCH ×2 (09:09→20:44)
[2019-11-04] MEDS: POTASSIUM CHLORIDE 20 MEQ TABLET.ER. PO SCH (09:09)
[2019-11-04] MEDS: LACTOBACILLUS RHAMNOSUS GG 1 CAPSULE. PO SCH ×2 (09:09→20:43)
[2019-11-04] MEDS: DIVALPROEX 125 MG CAP.SPRINK PO SCH ×2 (09:09→16:45)
[2019-11-04] MEDS: SERTRALINE 50 MG TABLET. PO SCH (09:09)
[2019-11-04] MEDS: ASPIRIN 81 MG TAB.CHEW PO SCH (09:09)
[2019-11-04] MEDS: QUEtiapine 25 MG TABLET. PO SCH ×3 (09:10→16:45)
[2019-11-04] MEDS: CARBIDOPA/LEVODOPA 25/100MG TABLET PO SCH ×3 (09:10→20:43)
[2019-11-04] MEDS: MEMANTINE 10 MG TABLET. PO SCH ×2 (09:10→20:43)
[2019-11-04] MEDS: amLODIPine BESYLATE 5 MG TABLET PO SCH (09:10)
[2019-11-04] MEDS: NAPROXEN 250 MG TABLET PO SCH ×2 (09:10→20:44)
[2019-11-04] MEDS: NYSTATIN TOPICAL POWDER 15GM BOTTLE. TP SCH ×2 (09:11→20:44)
[2019-11-04 16:08] VITALS: BP 118/69
[2019-11-04] MEDS: DONEPEZIL 23 MG TABLET PO SCH (20:43)
[2019-11-04] MEDS: MELATONIN 3 MG TABLET PO SCH (20:44)
[2019-11-04] MEDS: MIRTAZAPINE 7.5 MG TABLET. PO SCH (20:44)
[2019-11-04] MEDS: MAGNESIUM HYDROXIDE 2,400 MG/30 ML ORAL.SUSP. PO SCH (20:44)
--- NOTE | 2019-11-04 20:57 | PDOC ---
Exam Note: Jose Eduardo Note: Please also refer to the separate dictated note~for this date of service dictated separately.~Patient seen individually. Discussed the patient with Nursing staff reviewed the chart.~Reviewed interim history and current functioning. Reviewed vital signs,~Labs/ Radiology~and current medications noted below. Continue current treatment with the changes noted in the dictated addendum note Assessment: Vital Signs/I&O: Vital Signs Date Time Temp Pulse Resp B/P (MAP) Pulse Ox O2 Delivery O2 Flow Rate FiO2 11/04/19 16:08 98.1 58 20 118/69 (85) 99 Room Air I & O 11/03/19 11/03/19 11/04/19 15:00 23:00 07:00 Intake Total 480 ml 900 ml Balance 480 ml 900 ml Current Medications: I have reviewed the current psychotropics carefully including drug interactions. Risk benefit ratio favors no change other than as noted in my dictated progress note. Diagnosis: Problems: (1) Dementia with behavioral disturbance (2) Anxiety disorder (3) Dementia, vascular, with delusions (4) Dementia, vascular, with depression (5) Dementia in Alzheimer's disease with delusions (6) Dementia in Alzheimer's disease with depression (7) Impulse control disorder MAN VICKERS MD Nov 04, 2019 20:57
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
[2019-11-05 06:06] VITALS: BP_SYST 128; BP_SYST 91; BP_DIAS 61; BP_DIAS 71
[2019-11-05] MEDS: CARBIDOPA/LEVODOPA 25/100MG TABLET PO SCH ×4 (08:07→20:17)
[2019-11-05] MEDS: LACTOBACILLUS RHAMNOSUS GG 1 CAPSULE. PO SCH ×3 (08:08→20:18)
[2019-11-05] MEDS: amLODIPine BESYLATE 5 MG TABLET PO SCH (08:08)
[2019-11-05] MEDS: ASPIRIN 81 MG TAB.CHEW PO SCH (08:08)
[2019-11-05] MEDS: QUEtiapine 25 MG TABLET. PO SCH ×3 (08:08→17:00)
[2019-11-05] MEDS: SERTRALINE 50 MG TABLET. PO SCH (08:08)
[2019-11-05] MEDS: POTASSIUM CHLORIDE 20 MEQ TABLET.ER. PO SCH (08:09)
[2019-11-05] MEDS: NAPROXEN 250 MG TABLET PO SCH ×3 (08:09→20:17)
[2019-11-05] MEDS: MEMANTINE 10 MG TABLET. PO SCH ×3 (08:09→20:18)
[2019-11-05] MEDS: ACETAMINOPHEN 650 MG/20.3 ML SOLUTION. PO SCH ×3 (08:10→20:18)
[2019-11-05] MEDS: DIVALPROEX 125 MG CAP.SPRINK PO SCH ×3 (08:10→17:00)
[2019-11-05] MEDS: NYSTATIN TOPICAL POWDER 15GM BOTTLE. TP SCH ×2 (08:10→20:18)
[2019-11-05 10:55] LABS: BASO # 0.1 x10^3/uL (0.0-0.2); BASO % 1 % (0-3); EOS # 0.2 x10^3/uL (0.0-0.7); EOS % 3 % (0-3); HEMOGLOBIN 12.7 g/dL (13.0-17.5); LYMPH # 1.5 x10^3/uL (1.0-4.8); LYMPH % 21 % (24-48); MEAN CORPUSCULAR HEMOGLOBIN 30 pg (25-35); MEAN CORPUSCULAR HGB CONC 33 g/dL (31-37); MEAN CORPUSCULAR VOLUME 92 fL (79-100); MONO # 0.5 x10^3/uL (0.0-1.1); MONO % 7 % (0-9); NEUT # 4.8 x10^3uL (1.8-7.7); NEUT % 68 % (31-73); PLATELET COUNT 246 x10^3/uL (140-400); RED BLOOD COUNT 4.24 x10^6/uL (4.30-5.70); RED CELL DISTRIBUTION WIDTH 14.5 % (11.5-14.5); WHITE BLOOD COUNT 7.1 x10^3/uL (4.0-11.0)
[2019-11-05 11:14] LABS: ALBUMIN 3.1 g/dL (3.4-5.0); ALBUMIN/GLOBULIN RATIO 0.8 (1.0-1.7); CREATININE 1.2 mg/dL (0.7-1.3); GFR 58.3; POTASSIUM 4.7 mmol/L (3.5-5.1); TOTAL BILIRUBIN 0.5 mg/dL (0.2-1.0); TOTAL PROTEIN 6.8 g/dL (6.4-8.2)
--- NOTE | 2019-11-05 16:20 | PN ---
DATE: 11/03/2019 PSYCHIATRIC PROGRESS NOTE This late entry on 11/03/2019 covers elements not covered in my initial note. SUBJECTIVE: I met with the patient in the evening of 11/03/2019. Per CLAUDE Canseco, the patient slept 7-1/4 hours previous night. He was restless at night, trying to rip up the counter over the toilet, trying to pull the toilet out of the floor. Gets aggressive, confused and psychotic. At 9:30 a.m., he was pleasant in the shower. At lunchtime, he was combative with staff, twisting their fingers, took a nap, then did better after that. REVIEW OF SYSTEMS: No CV, , pulmonary, eye, ENT system symptoms on review. Reliability poor. MENTAL STATUS EXAM: Oriented to himself. Insight, judgment, recent and remote memory, attention, concentration, fund of knowledge poor consistent with his diagnosis mentioned in my initial note. PLAN: We will check with Dr. Valera whether the UTI could have recurred worsening his behaviors, psychosis, confusion. Maintain rest of the psychotropics, unchanged from initial note. MAN Eulalio VICKERS MD DR: AARON/mannie JOB#: [id number] / [id number]
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
[2019-11-05 18:10] LABS: BILIRUBIN,URINE NEG (NEG); CLARITY,URINE HAZY; COLOR,URINE YELLOW; GLUCOSE,URINE NEG (NEG)
[2019-11-05 18:11] LABS: AMORPHOUS SEDIMENT,UR PRESENT /HPF; BACTERIA,URINE FEW /HPF (0-FEW); HYALINE CASTS, URINE OCC /HPF; NITRITE,URINE NEG (NEG); SQUAMOUS EPITHELIAL CELL,UR FEW /LPF; UROBILINOGEN,URINE 0.2 mg/dL (0.2 mg/dL)
[2019-11-05] MEDS: MELATONIN 3 MG TABLET PO SCH (20:17)
[2019-11-05] MEDS: MIRTAZAPINE 7.5 MG TABLET. PO SCH (20:18)
[2019-11-05] MEDS: DONEPEZIL 23 MG TABLET PO SCH (20:18)
[2019-11-05] MEDS: MAGNESIUM HYDROXIDE 2,400 MG/30 ML ORAL.SUSP. PO SCH (20:19)
--- NOTE | 2019-11-05 20:55 | PDOC ---
Exam Note: Jose Eduardo Note: Please also refer to the separate dictated note~for this date of service dictated separately.~Patient seen individually. Discussed the patient with Nursing staff reviewed the chart.~Reviewed interim history and current functioning. Reviewed vital signs,~Labs/ Radiology~and current medications noted below. Continue current treatment with the changes noted in the dictated addendum note Assessment: Vital Signs/I&O: Vital Signs Date Time Temp Pulse Resp B/P (MAP) Pulse Ox O2 Delivery O2 Flow Rate FiO2 11/05/19 08:08 59 128/71 11/05/19 06:06 95.7 18 98 Room Air I & O 11/04/19 11/04/19 11/05/19 15:00 23:00 07:00 Intake Total 1080 ml 240 ml 240 ml Balance 1080 ml 240 ml 240 ml Labs: Laboratory Tests Test 11/05/19 10:42 11/05/19 17:30 White Blood Count 7.1 x10^3/uL (4.0-11.0) Red Blood Count 4.24 x10^6/uL (4.30-5.70) L Hemoglobin 12.7 g/dL (13.0-17.5) L Hematocrit 39.0 % (39.0-53.0) Mean Corpuscular Volume 92 fL (79-100) Mean Corpuscular Hemoglobin 30 pg (25-35) Mean Corpuscular Hemoglobin Concent 33 g/dL (31-37) Red Cell Distribution Width 14.5 % (11.5-14.5) Platelet Count 246 x10^3/uL (140-400) Neutrophils (%) (Auto) 68 % (31-73) Lymphocytes (%) (Auto) 21 % (24-48) L Monocytes (%) (Auto) 7 % (0-9) Eosinophils (%) (Auto) 3 % (0-3) Basophils (%) (Auto) 1 % (0-3) Neutrophils # (Auto) 4.8 x10^3uL (1.8-7.7) Lymphocytes # (Auto) 1.5 x10^3/uL (1.0-4.8) Monocytes # (Auto) 0.5 x10^3/uL (0.0-1.1) Eosinophils # (Auto) 0.2 x10^3/uL (0.0-0.7) Basophils # (Auto) 0.1 x10^3/uL (0.0-0.2) Sodium Level 142 mmol/L (136-145) Potassium Level 4.7 mmol/L (3.5-5.1) Chloride Level 108 mmol/L (98-107) H Carbon Dioxide Level 29 mmol/L (21-32) Anion Gap 5 (6-14) L Blood Urea Nitrogen 43 mg/dL (8-26) H Creatinine 1.2 mg/dL (0.7-1.3) Estimated GFR (Cockcroft-Gault) 58.3 BUN/Creatinine Ratio 36 (6-20) H Glucose Level 90 mg/dL (70-99) Calcium Level 8.0 mg/dL (8.5-10.1) L Total Bilirubin 0.5 mg/dL (0.2-1.0) Aspartate Amino Transferase (AST) 27 U/L (15-37) Alanine Aminotransferase (ALT) 23 U/L (16-63) Alkaline Phosphatase 106 U/L (46-116) Total Protein 6.8 g/dL (6.4-8.2) Albumin 3.1 g/dL (3.4-5.0) L Albumin/Globulin Ratio 0.8 (1.0-1.7) L Urine Collection Type Unknown Urine Color Yellow Urine Clarity Hazy Urine pH 8.5 Urine Specific Rhodelia 1.020 Urine Protein Trace (NEG-TRACE) Urine Glucose (UA) Neg mg/dL (NEG) Urine Ketones (Stick) Neg mg/dL (NEG) Urine Blood Mod (NEG) Urine Nitrite Neg (NEG) Urine Bilirubin Neg (NEG) Urine Urobilinogen Dipstick 0.2 mg/dL (0.2 mg/dL) Urine Leukocyte Esterase Neg (NEG) Urine RBC 11-20 /HPF (0-2) Urine WBC 1-4 /HPF (0-4) Urine Squamous Epithelial Cells Few /LPF Urine Amorphous Sediment Present /HPF Urine Bacteria Few /HPF (0-FEW) Urine Hyaline Casts Occ /HPF Urine Mucus Slight /LPF Current Medications: Meds: Current Medications Medications (Trade) Dose Ordered Sig/Cathi Route PRN Reason Start Time Stop Time Status Last Admin Dose Admin Divalproex Sodium (Depakote Sprinkles) 250 mg 0900,1700 PO 1/17/20 09:00 1/17/20 17:00 Sertraline HCl (Zoloft) 75 mg DAILY PO 11/05/19 09:00 11/05/19 08:08 Lorazepam (Ativan Inj) 0.5 mg DAILY IM 11/05/19 09:00 11/05/19 09:00 I have reviewed the current psychotropics carefully including drug interactions. Risk benefit ratio favors no change other than as noted in my dictated progress note. Diagnosis: Problems: (1) Dementia with behavioral disturbance (2) Anxiety disorder (3) Dementia, vascular, with delusions (4) Dementia, vascular, with depression (5) Dementia in Alzheimer's disease with delusions (6) Dementia in Alzheimer's disease with depression (7) Impulse control disorder MAN VICKERS MD Nov 05, 2019 20:55
[2019-11-05] MEDS: traZODone 50 MG TABLET. PO PRN (21:41)
[2019-11-06 06:06] VITALS: BP 128/60
[2019-11-06] MEDS: LACTOBACILLUS RHAMNOSUS GG 1 CAPSULE. PO SCH ×2 (08:25→20:23)
[2019-11-06] MEDS: NAPROXEN 250 MG TABLET PO SCH ×2 (08:26→20:24)
[2019-11-06] MEDS: CHOLECALCIFEROL (VITAMIN D3) 50,000 UNIT CAPSULE PO SCH (08:26)
[2019-11-06] MEDS: ASPIRIN 81 MG TAB.CHEW PO SCH (08:26)
[2019-11-06] MEDS: amLODIPine BESYLATE 5 MG TABLET PO SCH (08:27)
[2019-11-06] MEDS: POTASSIUM CHLORIDE 20 MEQ TABLET.ER. PO SCH (08:27)
[2019-11-06] MEDS: SERTRALINE 50 MG TABLET. PO SCH (08:27)
[2019-11-06] MEDS: DIVALPROEX 125 MG CAP.SPRINK PO SCH ×2 (08:28→17:00)
[2019-11-06] MEDS: MEMANTINE 10 MG TABLET. PO SCH ×2 (08:29→20:23)
[2019-11-06] MEDS: QUEtiapine 25 MG TABLET. PO SCH ×3 (08:29→17:00)
[2019-11-06] MEDS: CARBIDOPA/LEVODOPA 25/100MG TABLET PO SCH ×3 (08:29→20:23)
[2019-11-06] MEDS: ACETAMINOPHEN 650 MG/20.3 ML SOLUTION. PO SCH ×2 (08:30→20:22)
[2019-11-06] MEDS: NYSTATIN TOPICAL POWDER 15GM BOTTLE. TP SCH ×2 (08:39→20:22)
[2019-11-06 15:25] VITALS: BP 126/98
[2019-11-06] MEDS: MAGNESIUM HYDROXIDE 2,400 MG/30 ML ORAL.SUSP. PO SCH (20:23)
[2019-11-06] MEDS: DONEPEZIL 23 MG TABLET PO SCH (20:23)
[2019-11-06] MEDS: MIRTAZAPINE 7.5 MG TABLET. PO SCH (20:23)
[2019-11-06] MEDS: MELATONIN 3 MG TABLET PO SCH (20:23)
[2019-11-06] MEDS: traZODone 50 MG TABLET. PO PRN (20:24)
--- NOTE | 2019-11-06 20:52 | PDOC ---
Exam Note: Jose Eduardo Note: Please also refer to the separate dictated note~for this date of service dictated separately.~Patient seen individually. Discussed the patient with Nursing staff reviewed the chart.~Reviewed interim history and current functioning. Reviewed vital signs,~Labs/ Radiology~and current medications noted below. Continue current treatment with the changes noted in the dictated addendum note Assessment: Vital Signs/I&O: Vital Signs Date Time Temp Pulse Resp B/P (MAP) Pulse Ox O2 Delivery O2 Flow Rate FiO2 11/06/19 15:25 97.0 85 20 126/98 (107) 95 11/06/19 06:06 Room Air I & O 11/05/19 11/05/19 11/06/19 15:00 23:00 07:00 Intake Total 900 ml 360 ml 240 ml Balance 900 ml 360 ml 240 ml Current Medications: I have reviewed the current psychotropics carefully including drug interactions. Risk benefit ratio favors no change other than as noted in my dictated progress note. Diagnosis: Problems: (1) Dementia with behavioral disturbance (2) Anxiety disorder (3) Dementia, vascular, with delusions (4) Dementia, vascular, with depression (5) Dementia in Alzheimer's disease with delusions (6) Dementia in Alzheimer's disease with depression (7) Impulse control disorder MAN VICKERS MD Nov 06, 2019 20:52
[2019-11-07 05:46] VITALS: BP 145/72
[2019-11-07] MEDS: NYSTATIN TOPICAL POWDER 15GM BOTTLE. TP SCH ×2 (09:00→20:06)
[2019-11-07] MEDS: ACETAMINOPHEN 650 MG/20.3 ML SOLUTION. PO SCH ×2 (09:06→20:08)
[2019-11-07] MEDS: DIVALPROEX 125 MG CAP.SPRINK PO SCH ×2 (09:06→17:50)
[2019-11-07] MEDS: LACTOBACILLUS RHAMNOSUS GG 1 CAPSULE. PO SCH ×2 (09:06→20:06)
[2019-11-07] MEDS: QUEtiapine 25 MG TABLET. PO SCH ×3 (09:06→17:50)
[2019-11-07] MEDS: POTASSIUM CHLORIDE 20 MEQ TABLET.ER. PO SCH (09:06)
[2019-11-07] MEDS: NAPROXEN 250 MG TABLET PO SCH ×2 (09:07→20:07)
[2019-11-07] MEDS: CARBIDOPA/LEVODOPA 25/100MG TABLET PO SCH ×3 (09:07→20:08)
[2019-11-07] MEDS: MEMANTINE 10 MG TABLET. PO SCH ×2 (09:07→20:07)
[2019-11-07] MEDS: SERTRALINE 50 MG TABLET. PO SCH (09:07)
[2019-11-07] MEDS: amLODIPine BESYLATE 5 MG TABLET PO SCH (09:07)
[2019-11-07] MEDS: ASPIRIN 81 MG TAB.CHEW PO SCH (09:07)
[2019-11-07 15:28] VITALS: BP 118/50
[2019-11-07] MEDS: traZODone 50 MG TABLET. PO PRN (20:07)
[2019-11-07] MEDS: MIRTAZAPINE 7.5 MG TABLET. PO SCH (20:07)
[2019-11-07] MEDS: DONEPEZIL 23 MG TABLET PO SCH (20:07)
[2019-11-07] MEDS: MELATONIN 3 MG TABLET PO SCH (20:07)
[2019-11-07] MEDS: MAGNESIUM HYDROXIDE 2,400 MG/30 ML ORAL.SUSP. PO SCH (20:08)
--- NOTE | 2019-11-07 20:54 | PDOC ---
Exam Note: Jose Eduardo Note: Please also refer to the separate dictated note~for this date of service dictated separately.~Patient seen individually. Discussed the patient with Nursing staff reviewed the chart.~Reviewed interim history and current functioning. Reviewed vital signs,~Labs/ Radiology~and current medications noted below. Continue current treatment with the changes noted in the dictated addendum note Assessment: Vital Signs/I&O: Vital Signs Date Time Temp Pulse Resp B/P (MAP) Pulse Ox O2 Delivery O2 Flow Rate FiO2 11/07/19 15:28 98.1 80 18 118/50 (72) 94 11/06/19 06:06 Room Air I & O 11/06/19 11/06/19 11/07/19 15:00 23:00 07:00 Intake Total 360 ml 480 ml Balance 360 ml 480 ml Current Medications: Meds: Current Medications Medications (Trade) Dose Ordered Sig/Cathi Route PRN Reason Start Time Stop Time Status Last Admin Dose Admin Carbidopa/Levodopa (Sinemet 25/100) 1 tab QID PO 11/07/19 21:00 11/07/19 20:08 I have reviewed the current psychotropics carefully including drug interactions. Risk benefit ratio favors no change other than as noted in my dictated progress note. Diagnosis: Problems: (1) Dementia with behavioral disturbance (2) Anxiety disorder (3) Dementia, vascular, with delusions (4) Dementia, vascular, with depression (5) Dementia in Alzheimer's disease with delusions (6) Dementia in Alzheimer's disease with depression (7) Impulse control disorder MAN VICKERS MD Nov 07, 2019 20:54
--- NOTE | 2019-11-07 23:41 | PN ---
DATE: 11/06/2019 PSYCHIATRIC PROGRESS NOTE This late entry 11/06/2019 covers elements not covered in my initial note. SUBJECTIVE: I met with the patient evening of 11/06/2019. The patient slept 6-1/2 hours previous night. He continues to be somewhat labile in his mood agitated previous evening, received Ativan IM, combative at times. Zyprexa seemed to help. UA with straight catheterization was negative. Valproic acid level was subtherapeutic on her previous check, on Depakote 250 mg twice a day. Next set of labs and valproic acid level on the . REVIEW OF SYSTEMS: No CV, , pulmonary, eye, ENT system symptoms on review. Reliability poor. MENTAL STATUS EXAM: Oriented to himself. Insight, judgment, recent and remote memory, attention, concentration, fund of knowledge poor, consistent with his diagnosis mentioned in theinitial note. PLAN: No change from initial note other than noted above. MAN VICKERS MD DR: AARON/mannie JOB#: [id number] / [id number]
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
[2019-11-08 06:01] VITALS: BP 132/78
[2019-11-08 07:42] LABS: BASO # 0.1 x10^3/uL (0.0-0.2); BASO % 1 % (0-3); EOS # 0.3 x10^3/uL (0.0-0.7); EOS % 5 % (0-3); HEMATOCRIT 38.3 % (39.0-53.0); HEMOGLOBIN 12.4 g/dL (13.0-17.5); LYMPH # 1.6 x10^3/uL (1.0-4.8); LYMPH % 25 % (24-48); MEAN CORPUSCULAR HEMOGLOBIN 30 pg (25-35); MEAN CORPUSCULAR HGB CONC 32 g/dL (31-37); MEAN CORPUSCULAR VOLUME 92 fL (79-100); MONO # 0.5 x10^3/uL (0.0-1.1); MONO % 7 % (0-9); NEUT # 4.1 x10^3uL (1.8-7.7); NEUT % 62 % (31-73); PLATELET COUNT 233 x10^3/uL (140-400); RED BLOOD COUNT 4.17 x10^6/uL (4.30-5.70); RED CELL DISTRIBUTION WIDTH 14.6 % (11.5-14.5); WHITE BLOOD COUNT 6.6 x10^3/uL (4.0-11.0)
[2019-11-08 08:07] LABS: ALBUMIN 2.6 g/dL (3.4-5.0); ALBUMIN/GLOBULIN RATIO 0.7 (1.0-1.7); ALK PHOS 94 U/L (46-116); ALT (SGPT) 26 U/L (16-63); ANION GAP 5 (6-14); AST (SGOT) 30 U/L (15-37); BLOOD UREA NITROGEN 41 mg/dL (8-26); BUN/CREATININE RATIO 37 (6-20); CALCIUM 7.9 mg/dL (8.5-10.1); CARBON DIOXIDE 29 mmol/L (21-32); CHLORIDE 112 mmol/L (98-107); CREATININE 1.1 mg/dL (0.7-1.3); GFR 64.4; GLUCOSE 81 mg/dL (70-99); POTASSIUM 4.7 mmol/L (3.5-5.1); SODIUM 146 mmol/L (136-145); TOTAL BILIRUBIN 0.3 mg/dL (0.2-1.0); TOTAL PROTEIN 6.1 g/dL (6.4-8.2)
[2019-11-08 08:09] LABS: VAL ACID 17 mcg/mL (50-100)
[2019-11-08] MEDS: DIVALPROEX 125 MG CAP.SPRINK PO SCH ×2 (11:33→16:56)
[2019-11-08] MEDS: NAPROXEN 250 MG TABLET PO SCH ×2 (11:33→19:52)
[2019-11-08] MEDS: CARBIDOPA/LEVODOPA 25/100MG TABLET PO SCH ×4 (11:34→19:51)
[2019-11-08] MEDS: ACETAMINOPHEN 650 MG/20.3 ML SOLUTION. PO SCH ×2 (11:34→19:51)
[2019-11-08] MEDS: MEMANTINE 10 MG TABLET. PO SCH ×2 (11:34→19:52)
[2019-11-08] MEDS: amLODIPine BESYLATE 5 MG TABLET PO SCH (11:34)
[2019-11-08] MEDS: QUEtiapine 25 MG TABLET. PO SCH ×3 (11:34→16:57)
[2019-11-08] MEDS: LACTOBACILLUS RHAMNOSUS GG 1 CAPSULE. PO SCH ×2 (11:34→19:51)
[2019-11-08] MEDS: ASPIRIN 81 MG TAB.CHEW PO SCH (11:35)
[2019-11-08] MEDS: NYSTATIN TOPICAL POWDER 15GM BOTTLE. TP SCH ×2 (11:35→19:53)
[2019-11-08] MEDS: POTASSIUM CHLORIDE 20 MEQ TABLET.ER. PO SCH (11:35)
[2019-11-08] MEDS: SERTRALINE 50 MG TABLET. PO SCH (11:35)
[2019-11-08 15:56] VITALS: BP 159/80
[2019-11-08] MEDS: DONEPEZIL 23 MG TABLET PO SCH (19:51)
[2019-11-08] MEDS: MELATONIN 3 MG TABLET PO SCH (19:51)
[2019-11-08] MEDS: MAGNESIUM HYDROXIDE 2,400 MG/30 ML ORAL.SUSP. PO SCH (19:51)
[2019-11-08] MEDS: MIRTAZAPINE 7.5 MG TABLET. PO SCH (19:51)
--- NOTE | 2019-11-08 20:53 | PDOC ---
Exam Note: Jose Eduardo Note: Please also refer to the separate dictated note~for this date of service dictated separately.~Patient seen individually. Discussed the patient with Nursing staff reviewed the chart.~Reviewed interim history and current functioning. Reviewed vital signs,~Labs/ Radiology~and current medications noted below. Continue current treatment with the changes noted in the dictated addendum note Assessment: Vital Signs/I&O: Vital Signs Date Time Temp Pulse Resp B/P (MAP) Pulse Ox O2 Delivery O2 Flow Rate FiO2 11/08/19 15:56 98.0 80 16 159/80 (106) 95 11/06/19 06:06 Room Air I & O 11/07/19 11/07/19 11/08/19 15:00 23:00 07:00 Intake Total 1140 ml 360 ml 240 ml Balance 1140 ml 360 ml 240 ml Labs: Laboratory Tests Test 11/08/19 07:25 White Blood Count 6.6 x10^3/uL (4.0-11.0) Red Blood Count 4.17 x10^6/uL (4.30-5.70) L Hemoglobin 12.4 g/dL (13.0-17.5) L Hematocrit 38.3 % (39.0-53.0) L Mean Corpuscular Volume 92 fL (79-100) Mean Corpuscular Hemoglobin 30 pg (25-35) Mean Corpuscular Hemoglobin Concent 32 g/dL (31-37) Red Cell Distribution Width 14.6 % (11.5-14.5) H Platelet Count 233 x10^3/uL (140-400) Neutrophils (%) (Auto) 62 % (31-73) Lymphocytes (%) (Auto) 25 % (24-48) Monocytes (%) (Auto) 7 % (0-9) Eosinophils (%) (Auto) 5 % (0-3) H Basophils (%) (Auto) 1 % (0-3) Neutrophils # (Auto) 4.1 x10^3uL (1.8-7.7) Lymphocytes # (Auto) 1.6 x10^3/uL (1.0-4.8) Monocytes # (Auto) 0.5 x10^3/uL (0.0-1.1) Eosinophils # (Auto) 0.3 x10^3/uL (0.0-0.7) Basophils # (Auto) 0.1 x10^3/uL (0.0-0.2) Sodium Level 146 mmol/L (136-145) H Potassium Level 4.7 mmol/L (3.5-5.1) Chloride Level 112 mmol/L (98-107) H Carbon Dioxide Level 29 mmol/L (21-32) Anion Gap 5 (6-14) L Blood Urea Nitrogen 41 mg/dL (8-26) H Creatinine 1.1 mg/dL (0.7-1.3) Estimated GFR (Cockcroft-Gault) 64.4 BUN/Creatinine Ratio 37 (6-20) H Glucose Level 81 mg/dL (70-99) Calcium Level 7.9 mg/dL (8.5-10.1) L Total Bilirubin 0.3 mg/dL (0.2-1.0) Aspartate Amino Transferase (AST) 30 U/L (15-37) Alanine Aminotransferase (ALT) 26 U/L (16-63) Alkaline Phosphatase 94 U/L (46-116) Total Protein 6.1 g/dL (6.4-8.2) L Albumin 2.6 g/dL (3.4-5.0) L Albumin/Globulin Ratio 0.7 (1.0-1.7) L Valproic Acid Level 17 mcg/mL (50-100) L Valproic Acid Last Dose Date 11/07/19 Valproic Acid Last Dose Time 1700 Current Medications: Meds: Current Medications Medications (Trade) Dose Ordered Sig/Cathi Route PRN Reason Start Time Stop Time Status Last Admin Dose Admin Carbidopa/Levodopa (Sinemet 25/100) 1 tab QID PO 11/07/19 21:00 11/08/19 19:51 I have reviewed the current psychotropics carefully including drug interactions. Risk benefit ratio favors no change other than as noted in my dictated progress note. Diagnosis: Problems: (1) Dementia with behavioral disturbance (2) Anxiety disorder (3) Dementia, vascular, with delusions (4) Dementia, vascular, with depression (5) Dementia in Alzheimer's disease with delusions (6) Dementia in Alzheimer's disease with depression (7) Impulse control disorder MAN VICKERS MD Nov 08, 2019 20:53
--- NOTE | 2019-11-08 23:42 | PN ---
DATE: 11/07/2019 PSYCHIATRIC PROGRESS NOTE. This late entry of 11/07/2019 covers the elements not covered in my initial note. SUBJECTIVE: I met with the patient in the evening of 11/07/2019. Per nursing report, the patient slept 7-1/2 hours previous night per CLAUDE Pedersen. He has been combative with cares, but did not receive IM Ativan, received Zyprexa twice p.r.n. for psychosis. Takes his medications crushed, slept 10 in the morning. REVIEW OF SYSTEMS: No CV, , pulmonary, eye, ENT system symptoms on review. Reliability poor. MENTAL STATUS EXAM: Oriented to himself. Insight, judgment, recent and remote memory, attention, concentration, fund of knowledge poor, consistent with his diagnosis mentioned in my initial note. PLAN: No change from initial note. MAN Eulalio VICKERS MD DR: AARON/mannie JOB#: [id number] / [id number]
[2019-11-09] MEDS: SERTRALINE 100 MG TABLET. PO SCH (11:07)
[2019-11-09] MEDS: ACETAMINOPHEN 650 MG/20.3 ML SOLUTION. PO SCH ×2 (11:07→19:25)
[2019-11-09] MEDS: POTASSIUM CHLORIDE 20 MEQ TABLET.ER. PO SCH (11:07)
[2019-11-09] MEDS: MEMANTINE 10 MG TABLET. PO SCH ×2 (11:07→19:26)
[2019-11-09] MEDS: LACTOBACILLUS RHAMNOSUS GG 1 CAPSULE. PO SCH ×2 (11:08→19:26)
[2019-11-09] MEDS: QUEtiapine 25 MG TABLET. PO SCH ×3 (11:08→16:59)
[2019-11-09] MEDS: NAPROXEN 250 MG TABLET PO SCH ×2 (11:08→19:26)
[2019-11-09] MEDS: CARBIDOPA/LEVODOPA 25/100MG TABLET PO SCH ×4 (11:08→19:26)
[2019-11-09] MEDS: ASPIRIN 81 MG TAB.CHEW PO SCH (11:09)
[2019-11-09] MEDS: amLODIPine BESYLATE 5 MG TABLET PO SCH (11:09)
[2019-11-09] MEDS: DIVALPROEX 125 MG CAP.SPRINK PO SCH ×2 (11:09→16:58)
[2019-11-09] MEDS: NYSTATIN TOPICAL POWDER 15GM BOTTLE. TP SCH ×2 (11:09→19:25)
[2019-11-09 16:16] VITALS: BP 122/57
[2019-11-09] MEDS: MELATONIN 3 MG TABLET PO SCH (19:25)
[2019-11-09] MEDS: DONEPEZIL 23 MG TABLET PO SCH (19:25)
[2019-11-09] MEDS: MAGNESIUM HYDROXIDE 2,400 MG/30 ML ORAL.SUSP. PO SCH (19:26)
[2019-11-09] MEDS: MIRTAZAPINE 7.5 MG TABLET. PO SCH (19:26)
[2019-11-09] MEDS: traZODone 50 MG TABLET. PO PRN (19:26)
--- NOTE | 2019-11-09 20:59 | PDOC ---
Exam Note: Jose Eduardo Note: Please also refer to the separate dictated note~for this date of service dictated separately.~Patient seen individually. Discussed the patient with Nursing staff reviewed the chart.~Reviewed interim history and current functioning. Reviewed vital signs,~Labs/ Radiology~and current medications noted below. Continue current treatment with the changes noted in the dictated addendum note Assessment: Vital Signs/I&O: Vital Signs Date Time Temp Pulse Resp B/P (MAP) Pulse Ox O2 Delivery O2 Flow Rate FiO2 11/09/19 16:16 97.4 58 16 122/57 (78) 98 Room Air I & O 11/08/19 11/08/19 11/09/19 15:00 23:00 07:00 Intake Total 360 ml 840 ml Balance 360 ml 840 ml Current Medications: Meds: Current Medications Medications (Trade) Dose Ordered Sig/Cathi Route PRN Reason Start Time Stop Time Status Last Admin Dose Admin Sertraline HCl (Zoloft) 100 mg DAILY PO 11/09/19 09:00 11/09/19 11:07 I have reviewed the current psychotropics carefully including drug interactions. Risk benefit ratio favors no change other than as noted in my dictated progress note. Diagnosis: Problems: (1) Dementia with behavioral disturbance (2) Anxiety disorder (3) Dementia, vascular, with delusions (4) Dementia, vascular, with depression (5) Dementia in Alzheimer's disease with delusions (6) Dementia in Alzheimer's disease with depression (7) Impulse control disorder MAN VICKERS MD Nov 09, 2019 20:59
--- NOTE | 2019-11-09 21:49 | PN ---
DATE: 11/08/2019 PSYCHIATRIC PROGRESS NOTE This late entry of 11/08 covers elements not covered in my initial note. SUBJECTIVE: I met with the patient in the evening. Per CLAUDE Pedersen, the patient slept 8-1/2 hours the previous night. He slept in, in the morning. Later, he was agitated, combative; had to be in the day room; then did better for a while; then late again in the evening, he was aggressive, had to be placed in the [facility] shortly after I visited with him. REVIEW OF SYSTEMS: Hard of hearing. No CV, , pulmonary, eye system symptoms on review. Reliability poor. MENTAL STATUS EXAMINATION: Oriented to himself. Insight, judgment, recent and remote memory, attention, concentration, fund of knowledge poor; consistent with his diagnosis mentioned in my initial note. PLAN: The patient did not receive IM Ativan on 11/08. We will increase Zoloft to 100 mg a day after he has been on 75 for 3 days. Rest unchanged for now. MAN Eulalio VICKERS MD DR: AARON/mannie JOB#: [id number] / [id number]
[2019-11-10 05:36] VITALS: BP 143/64
[2019-11-10] MEDS: QUEtiapine 25 MG TABLET. PO SCH ×3 (13:00→17:00)
[2019-11-10] MEDS: CARBIDOPA/LEVODOPA 25/100MG TABLET PO SCH ×4 (13:00→21:34)
[2019-11-10] MEDS: MEMANTINE 10 MG TABLET. PO SCH ×2 (14:08→21:34)
[2019-11-10] MEDS: DIVALPROEX 125 MG CAP.SPRINK PO SCH ×2 (14:08→17:00)
[2019-11-10] MEDS: ACETAMINOPHEN 650 MG/20.3 ML SOLUTION. PO SCH ×2 (14:08→21:00)
[2019-11-10] MEDS: NYSTATIN TOPICAL POWDER 15GM BOTTLE. TP SCH ×2 (14:08→21:00)
[2019-11-10] MEDS: LACTOBACILLUS RHAMNOSUS GG 1 CAPSULE. PO SCH ×2 (14:08→21:34)
[2019-11-10] MEDS: amLODIPine BESYLATE 5 MG TABLET PO SCH (14:09)
[2019-11-10] MEDS: ASPIRIN 81 MG TAB.CHEW PO SCH (14:09)
[2019-11-10] MEDS: POTASSIUM CHLORIDE 20 MEQ TABLET.ER. PO SCH (14:09)
[2019-11-10] MEDS: NAPROXEN 250 MG TABLET PO SCH ×2 (14:10→21:33)
[2019-11-10] MEDS: SERTRALINE 100 MG TABLET. PO SCH (14:10)
[2019-11-10 15:57] VITALS: BP 135/76
--- NOTE | 2019-11-10 20:53 | PDOC ---
Exam Note: Jose Eduardo Note: Please also refer to the separate dictated note~for this date of service dictated separately.~Patient seen individually. Discussed the patient with Nursing staff reviewed the chart.~Reviewed interim history and current functioning. Reviewed vital signs,~Labs/ Radiology~and current medications noted below. Continue current treatment with the changes noted in the dictated addendum note Assessment: Vital Signs/I&O: Vital Signs Date Time Temp Pulse Resp B/P (MAP) Pulse Ox O2 Delivery O2 Flow Rate FiO2 11/10/19 15:57 97.8 59 20 135/76 (95) 99 11/10/19 05:36 Room Air I & O 11/09/19 11/09/19 11/10/19 15:00 23:00 07:00 Intake Total 600 ml 480 ml Balance 600 ml 480 ml Current Medications: I have reviewed the current psychotropics carefully including drug interactions. Risk benefit ratio favors no change other than as noted in my dictated progress note. Diagnosis: Problems: (1) Dementia with behavioral disturbance (2) Anxiety disorder (3) Dementia, vascular, with delusions (4) Dementia, vascular, with depression (5) Dementia in Alzheimer's disease with delusions (6) Dementia in Alzheimer's disease with depression (7) Impulse control disorder MAN VICKERS MD Nov 10, 2019 20:53
[2019-11-10] MEDS: MAGNESIUM HYDROXIDE 2,400 MG/30 ML ORAL.SUSP. PO SCH (21:00)
[2019-11-10] MEDS: MIRTAZAPINE 7.5 MG TABLET. PO SCH (21:34)
[2019-11-10] MEDS: MELATONIN 3 MG TABLET PO SCH (21:35)
[2019-11-10] MEDS: DONEPEZIL 23 MG TABLET PO SCH (21:35)
--- NOTE | 2019-11-10 23:32 | PN ---
DATE: 11/09/2019 PSYCHIATRIC PROGRESS NOTE This late entry of 11/09/2019 covers the elements not covered in my initial note. SUBJECTIVE: I met with the patient in the evening of 11/09/2019. Per CLAUDE Olivarez, the patient slept 7-3/4 hours previous night. 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 REVIEW OF SYSTEMS: No CV, , pulmonary, eye, ENT system symptoms on review. Very hard of hearing. Reliability poor. MENTAL STATUS EXAM: Oriented to himself. Insight, judgment, recent and remote memory, attention, concentration, fund of knowledge poor, consistent with his diagnosis mentioned in my initial note. PLAN: No change from initial note. MAN Eulalio VICKERS MD DR: AARON/mannie JOB#: [id number] / [id number]
[2019-11-11 06:37] VITALS: BP 164/71
[2019-11-11] MEDS: LACTOBACILLUS RHAMNOSUS GG 1 CAPSULE. PO SCH ×2 (09:00→21:00)
[2019-11-11] MEDS: POTASSIUM CHLORIDE 20 MEQ TABLET.ER. PO SCH (09:00)
[2019-11-11] MEDS: ACETAMINOPHEN 650 MG/20.3 ML SOLUTION. PO SCH ×2 (09:00→21:00)
[2019-11-11] MEDS: NYSTATIN TOPICAL POWDER 15GM BOTTLE. TP SCH ×2 (09:00→21:00)
[2019-11-11] MEDS: SERTRALINE 100 MG TABLET. PO SCH (11:56)
[2019-11-11] MEDS: amLODIPine BESYLATE 5 MG TABLET PO SCH (11:57)
[2019-11-11] MEDS: ASPIRIN 81 MG TAB.CHEW PO SCH (11:57)
[2019-11-11] MEDS: QUEtiapine 25 MG TABLET. PO SCH ×3 (11:58→17:32)
[2019-11-11] MEDS: CARBIDOPA/LEVODOPA 25/100MG TABLET PO SCH ×4 (11:59→22:25)
[2019-11-11] MEDS: MEMANTINE 10 MG TABLET. PO SCH ×2 (11:59→21:00)
[2019-11-11] MEDS: NAPROXEN 250 MG TABLET PO SCH ×2 (11:59→22:26)
[2019-11-11] MEDS ORDERED: DIVALPROEX ER 250 MG TAB.ER.24H. PO SCH (12:00)
[2019-11-11 16:16] VITALS: BP 109/37
[2019-11-11] MEDS: MAGNESIUM HYDROXIDE 2,400 MG/30 ML ORAL.SUSP. PO SCH (21:00)
[2019-11-11] MEDS: DONEPEZIL 23 MG TABLET PO SCH (21:00)
--- NOTE | 2019-11-11 21:04 | PDOC ---
Exam Note: Jose Eduardo Note: Please also refer to the separate dictated note~for this date of service dictated separately.~Patient seen individually. Discussed the patient with Nursing staff reviewed the chart.~Reviewed interim history and current functioning. Reviewed vital signs,~Labs/ Radiology~and current medications noted below. Continue current treatment with the changes noted in the dictated addendum note Assessment: Vital Signs/I&O: Vital Signs Date Time Temp Pulse Resp B/P (MAP) Pulse Ox O2 Delivery O2 Flow Rate FiO2 11/11/19 16:16 98.3 72 18 109/37 (61) 98 11/11/19 06:37 Room Air I & O 11/10/19 11/10/19 11/11/19 15:00 23:00 07:00 Intake Total 0 ml 420 ml Balance 0 ml 420 ml Current Medications: Meds: Current Medications Medications (Trade) Dose Ordered Sig/Cathi Route PRN Reason Start Time Stop Time Status Last Admin Dose Admin Sertraline HCl (Zoloft) 125 mg DAILY PO 11/11/19 09:00 11/11/19 11:56 I have reviewed the current psychotropics carefully including drug interactions. Risk benefit ratio favors no change other than as noted in my dictated progress note. Diagnosis: Problems: (1) Dementia with behavioral disturbance (2) Anxiety disorder (3) Dementia, vascular, with delusions (4) Dementia, vascular, with depression (5) Dementia in Alzheimer's disease with delusions (6) Dementia in Alzheimer's disease with depression (7) Impulse control disorder MAN VICKERS MD Nov 11, 2019 21:03
--- NOTE | 2019-11-11 21:41 | PN ---
DATE: 11/10/2019 PSYCHIATRIC PROGRESS NOTE This late entry 11/10/2019 covers elements not covered in my initial note. SUBJECTIVE: I met with the patient evening of 11/10/2019. Per CLAUDE Olivarez, the patient slept 6-1/2 hours previous night. He slept till about 2 p.m. He is compliant with his medications, was somewhat combative intermittently in the evening, but then calmer after that, then went to the day room, takes his medications and Boost. Did not receive IM Ativan on 11/10/2019. REVIEW OF SYSTEMS: Hard of hearing. Impaired ambulation. No CV, or pulmonary system symptoms on review. Reliability poor. MENTAL STATUS EXAM: Oriented to himself. Insight, judgment, recent and remote memory, attention, concentration, fund of knowledge poor, consistent with his diagnosis mentioned in my initial note. PLAN: No change from initial note, but increase Zoloft from 100 mg a day to 125 mg a day. Rest unchanged. MAN Eulalio VICKERS MD DR: AARON/mannie JOB#: [id number] / [id number]
[2019-11-11] MEDS: MELATONIN 3 MG TABLET PO SCH (22:25)
[2019-11-11] MEDS: MIRTAZAPINE 7.5 MG TABLET. PO SCH (22:26)
[2019-11-12] MEDS: LACTOBACILLUS RHAMNOSUS GG 1 CAPSULE. PO SCH ×2 (09:00→20:18)
[2019-11-12] MEDS: QUEtiapine 25 MG TABLET. PO SCH ×3 (09:00→17:00)
[2019-11-12] MEDS: amLODIPine BESYLATE 5 MG TABLET PO SCH (09:00)
[2019-11-12] MEDS: DIVALPROEX 125 MG CAP.SPRINK PO SCH ×2 (09:00→17:00)
[2019-11-12] MEDS: NYSTATIN TOPICAL POWDER 15GM BOTTLE. TP SCH ×2 (09:00→20:17)
[2019-11-12] MEDS: NAPROXEN 250 MG TABLET PO SCH ×2 (09:00→20:18)
[2019-11-12] MEDS: POTASSIUM CHLORIDE 20 MEQ TABLET.ER. PO SCH (09:00)
[2019-11-12] MEDS: SERTRALINE 100 MG TABLET. PO SCH (09:00)
[2019-11-12] MEDS: MEMANTINE 10 MG TABLET. PO SCH ×2 (09:00→20:18)
[2019-11-12] MEDS: ACETAMINOPHEN 650 MG/20.3 ML SOLUTION. PO SCH ×2 (09:00→20:18)
[2019-11-12] MEDS: CARBIDOPA/LEVODOPA 25/100MG TABLET PO SCH ×4 (09:00→20:18)
[2019-11-12] MEDS: ASPIRIN 81 MG TAB.CHEW PO SCH (09:00)
[2019-11-12 10:24] VITALS: BP 109/37
[2019-11-12 15:59] VITALS: BP 96/64
[2019-11-12] MEDS: MELATONIN 3 MG TABLET PO SCH (20:18)
[2019-11-12] MEDS: traZODone 50 MG TABLET. PO PRN (20:18)
[2019-11-12] MEDS: DONEPEZIL 23 MG TABLET PO SCH (20:18)
[2019-11-12] MEDS: MAGNESIUM HYDROXIDE 2,400 MG/30 ML ORAL.SUSP. PO SCH (20:18)
[2019-11-12] MEDS: MIRTAZAPINE 7.5 MG TABLET. PO SCH (20:18)
--- NOTE | 2019-11-12 21:03 | PDOC ---
Exam Note: Jose Eduardo Note: Please also refer to the separate dictated note~for this date of service dictated separately.~Patient seen individually. Discussed the patient with Nursing staff reviewed the chart.~Reviewed interim history and current functioning. Reviewed vital signs,~Labs/ Radiology~and current medications noted below. Continue current treatment with the changes noted in the dictated addendum note Assessment: Vital Signs/I&O: Vital Signs Date Time Temp Pulse Resp B/P (MAP) Pulse Ox O2 Delivery O2 Flow Rate FiO2 11/12/19 15:59 97.3 67 18 96/64 (75) 96 11/11/19 06:37 Room Air I & O 11/11/19 11/11/19 11/12/19 15:00 23:00 07:00 Intake Total 0 ml 100 ml 240 ml Balance 0 ml 100 ml 240 ml Current Medications: Meds: Current Medications Medications (Trade) Dose Ordered Sig/Cathi Route PRN Reason Start Time Stop Time Status Last Admin Dose Admin Divalproex Sodium (Depakote Sprinkles) 375 mg 0900,1700 PO 11/12/19 09:00 11/12/19 09:00 I have reviewed the current psychotropics carefully including drug interactions. Risk benefit ratio favors no change other than as noted in my dictated progress note. Diagnosis: Problems: (1) Dementia with behavioral disturbance (2) Anxiety disorder (3) Dementia, vascular, with delusions (4) Dementia, vascular, with depression (5) Dementia in Alzheimer's disease with delusions (6) Dementia in Alzheimer's disease with depression (7) Impulse control disorder MAN VICKERS MD Nov 12, 2019 21:03
[2019-11-13 05:42] VITALS: BP 114/49
[2019-11-13] MEDS: NYSTATIN TOPICAL POWDER 15GM BOTTLE. TP SCH ×2 (09:00→20:42)
[2019-11-13] MEDS: CHOLECALCIFEROL (VITAMIN D3) 50,000 UNIT CAPSULE PO SCH (13:00)
[2019-11-13] MEDS: MEMANTINE 10 MG TABLET. PO SCH ×2 (13:00→20:41)
[2019-11-13] MEDS: CARBIDOPA/LEVODOPA 25/100MG TABLET PO SCH ×4 (13:00→19:55)
[2019-11-13] MEDS: QUEtiapine 25 MG TABLET. PO SCH ×3 (13:01→17:00)
[2019-11-13] MEDS: ASPIRIN 81 MG TAB.CHEW PO SCH (13:01)
[2019-11-13] MEDS: NAPROXEN 250 MG TABLET PO SCH ×2 (13:01→19:55)
[2019-11-13] MEDS: DIVALPROEX 125 MG CAP.SPRINK PO SCH ×2 (13:01→17:00)
[2019-11-13] MEDS: amLODIPine BESYLATE 5 MG TABLET PO SCH (13:02)
[2019-11-13] MEDS: POTASSIUM CHLORIDE 20 MEQ TABLET.ER. PO SCH (13:02)
[2019-11-13] MEDS: LACTOBACILLUS RHAMNOSUS GG 1 CAPSULE. PO SCH ×2 (13:02→20:41)
[2019-11-13] MEDS: ACETAMINOPHEN 650 MG/20.3 ML SOLUTION. PO SCH ×2 (13:03→20:41)
[2019-11-13] MEDS: SERTRALINE 100 MG TABLET. PO SCH (13:03)
[2019-11-13 16:02] VITALS: BP 138/58
[2019-11-13] MEDS: MIRTAZAPINE 7.5 MG TABLET. PO SCH (19:55)
[2019-11-13] MEDS: traZODone 50 MG TABLET. PO PRN (19:55)
[2019-11-13] MEDS: MELATONIN 3 MG TABLET PO SCH (19:55)
--- NOTE | 2019-11-13 20:38 | PN ---
DATE: 10/30/2019 SUBJECTIVE: The patient is unable to provide any information. He is demented. He does not answer any questions. It was reported that the patient has been agitated and bringing himself to the floor. He does have intermittent resting tremor of the hands, more prominent on the left side along with stiffness. OBJECTIVE: GENERAL: Well-developed, well-nourished male, not in acute distress. VITAL SIGNS: Blood pressure 111/68, respiratory rate 18, pulse is 80 and regular, oxygen saturation 93% and temperature 97.6. HEENT: Normocephalic, atraumatic, otherwise unremarkable. NECK: Supple. Negative for carotid bruit, lymphadenopathy or thyromegaly. LUNGS: Clear to A and P. CARDIOVASCULAR: Regular rate and rhythm, normal S1, S2. ABDOMEN: Soft. Bowel sounds positive. EXTREMITIES: Negative for cyanosis, clubbing or edema. NEUROLOGICAL EXAM: Mental Status: The patient is awake, but does not follow any commands. He does not answer any questions at this time. Further evaluation is limited at this time. Cranial nerves are grossly intact, except for bilateral hearing loss. Motor examination, resting tremor of both hands, more distally than proximally. The tone is slightly increased in the lower extremities. Sensory examination revealed normal pinprick and light touch senses throughout. Deep tendon reflexes were symmetric and hypoactive with absent Achilles responses. Gait not tested. IMPRESSION: 1. Resting tremor with rigidity of the lower extremities difficulty to walk. 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 2. Dementia of possible Alzheimer type versus vascular type. 3. Multiple psychiatric problems include behavior disturbances anxiety and possible severe depression. 4. Multiple medical problems include chronic obstructive pulmonary disease, hypertension, osteoarthritis, history of atrial fibrillations and bilateral deafness. RECOMMENDATIONS: 1. We will continue with current management for Parkinson disease including carbidopa/levodopa 25/100 three times a day. 2. Continue with current medical and psychiatric care. M Oscar OLIVEROS MD DR: ALBERTO/mannie JOB#: [id number] / [id number]
[2019-11-13] MEDS: DONEPEZIL 23 MG TABLET PO SCH (20:40)
[2019-11-13] MEDS: MAGNESIUM HYDROXIDE 2,400 MG/30 ML ORAL.SUSP. PO SCH (20:41)
--- NOTE | 2019-11-13 20:49 | PN ---
DATE: 11/01/2019 SUBJECTIVE: The patient has been somewhat agitated in the morning, but he is currently calm and cooperative. He is hard of hearing and does not respond well to command. No recent falls or injuries. He continued to have resting tremor of the upper extremities, more prominent on the left side. OBJECTIVE: GENERAL: Well-developed, well-nourished male, not in acute distress. VITAL SIGNS: Blood pressure 130/82, respiratory rate is 17, pulse is 67 and regular, temperature 97.6, oxygen saturation 94% on room air. HEENT: Normocephalic, atraumatic, otherwise unremarkable. NECK: Supple. Negative for carotid bruit, lymphadenopathy or thyromegaly. LUNGS: Diminished breath sounds bilaterally. No wheezing or rales. CARDIOVASCULAR: Regular rate and rhythm. Normal S1, S2. ABDOMEN: Soft. Bowel sounds positive. EXTREMITIES: Negative for cyanosis, clubbing or edema. NEUROLOGICAL EXAM: Mental Status: The patient is awake and he follows 1-step commands. He is hard of hearing. Speech is limited. Further evaluation is limited at this time. Cranial nerves are grossly intact, except for bilateral hearing loss. Motor examination: No focal muscle bulk was seen. The strength is 4/5 throughout. The patient had a mild resting tremor of the upper extremities. The tone is increased in the lower extremities. Sensory examination revealed normal pinprick and light touch senses throughout. Deep tendon reflexes were symmetric and hypoactive with absent Achilles responses. Gait not tested at this time. The patient ambulates with a chair. LABORATORY DATA: On 10/31/2019, urine culture is positive and showed Enterococcus faecalis greater than 100,000 colonies. IMPRESSION: 1. Parkinsonian tremor, presented with resting tremor, increased tone in the lower extremities with difficulty walking. 2. Multiple medical problems include hypertension, chronic obstructive pulmonary disease, history of paroxysmal atrial fibrillation, osteoarthritis and bilateral deafness. 3. Multiple psychiatric problems include behavior disturbances, anxiety, intermittent delusions, and depression. 4. Dementia. 5. Urinary tract infection. RECOMMENDATIONS: 1. We will continue with carbidopa/levodopa at 25/100 t.i.d. 3. Continue with current medical and psychiatric care. M Oscar OLIVEROS MD DR: ALBERTO/mannie JOB#: [id number] / [id number]
--- NOTE | 2019-11-13 22:35 | PDOC ---
Exam Note: Jose Eduardo Note: Please also refer to the separate dictated note~for this date of service dictated separately.~Patient seen individually. Discussed the patient with Nursing staff reviewed the chart.~Reviewed interim history and current functioning. Reviewed vital signs,~Labs/ Radiology~and current medications noted below. Continue current treatment with the changes noted in the dictated addendum note Assessment: Vital Signs/I&O: Vital Signs Date Time Temp Pulse Resp B/P (MAP) Pulse Ox O2 Delivery O2 Flow Rate FiO2 11/13/19 16:02 97.8 69 18 138/58 (84) 96 11/11/19 06:37 Room Air I & O 11/12/19 11/12/19 11/13/19 15:00 23:00 07:00 Intake Total 360 ml 240 ml Balance 360 ml 240 ml Current Medications: I have reviewed the current psychotropics carefully including drug interactions. Risk benefit ratio favors no change other than as noted in my dictated progress note. Diagnosis: Problems: (1) Dementia with behavioral disturbance (2) Anxiety disorder (3) Dementia, vascular, with delusions (4) Dementia, vascular, with depression (5) Dementia in Alzheimer's disease with delusions (6) Dementia in Alzheimer's disease with depression (7) Impulse control disorder MAN VICKERS MD Nov 13, 2019 22:35
[2019-11-14 05:53] VITALS: BP 135/54
[2019-11-14] MEDS: CARBIDOPA/LEVODOPA 25/100MG TABLET PO SCH ×4 (09:00→20:10)
[2019-11-14] MEDS: LACTOBACILLUS RHAMNOSUS GG 1 CAPSULE. PO SCH ×2 (09:00→21:00)
[2019-11-14] MEDS: ASPIRIN 81 MG TAB.CHEW PO SCH (09:00)
[2019-11-14] MEDS: QUEtiapine 25 MG TABLET. PO SCH ×3 (09:00→17:00)
[2019-11-14] MEDS: ACETAMINOPHEN 650 MG/20.3 ML SOLUTION. PO SCH ×2 (09:00→21:00)
[2019-11-14] MEDS: DIVALPROEX 125 MG CAP.SPRINK PO SCH ×2 (09:00→13:29)
[2019-11-14] MEDS: amLODIPine BESYLATE 5 MG TABLET PO SCH (09:00)
[2019-11-14] MEDS: NAPROXEN 250 MG TABLET PO SCH ×2 (09:00→20:10)
[2019-11-14] MEDS: POTASSIUM CHLORIDE 20 MEQ TABLET.ER. PO SCH (09:00)
[2019-11-14] MEDS: MEMANTINE 10 MG TABLET. PO SCH ×2 (09:00→21:00)
[2019-11-14] MEDS: SERTRALINE 100 MG TABLET. PO SCH (09:00)
[2019-11-14] MEDS: NYSTATIN TOPICAL POWDER 15GM BOTTLE. TP SCH ×2 (09:00→21:00)
[2019-11-14 16:13] VITALS: BP 113/82
--- NOTE | 2019-11-14 18:34 | PN ---
DATE: 11/11/2019 PSYCHIATRIC PROGRESS NOTE This late entry 11/11/2019 covers elements not covered in my initial note. SUBJECTIVE: I met with the patient in the evening and staffed at a treatment team meeting with the entire team in the morning. The patient is sleeping average 7 hours, appetite 75%. He remains confused. Poor vision and being hard of hearing further complicates the confusion and his response to the environmental stimuli around him. We are repeating a UA to make sure UTI does not persist. He continues to be intermittently agitated, disruptive. REVIEW OF SYSTEMS: No CV, , GI system symptoms on review other than poor vision. Hard of hearing. Impaired ambulation. MENTAL STATUS EXAM: Oriented to himself. Insight, judgment, recent and remote memory, attention, concentration, fund of knowledge poor, consistent with his diagnosis mentioned in my initial note. IMPRESSION: Major neurocognitive disorder, Alzheimer, vascular with delusion, depression, behavioral disturbance; anxiety disorder, unspecified; impulse control disorder, unspecified. Rest unchanged. PLAN: Increase Depakote from 250 b.i.d. to 375 mg b.i.d. Check CBC, CMP, valproic acid level in 3 days. Valproic acid level at last check on 11/08/2019 was 17, subtherapeutic on 250 b.i.d. and therefore we are increasing it. Continue Sinemet for his Parkinson's, Aricept, melatonin, Remeron, Namenda, trazodone, Zoloft, Seroquel as noted in my initial note and he gets Ativan IM scheduled daily since oral was ineffective, but we may stop this once behaviorally he is more stable. MAN Eulalio VICKERS MD DR: AARON/mannie JOB#: [id number] / [id number]
[2019-11-14] MEDS: traZODone 50 MG TABLET. PO PRN (20:10)
[2019-11-14] MEDS: MELATONIN 3 MG TABLET PO SCH (20:10)
--- NOTE | 2019-11-14 20:52 | PDOC ---
Exam Note: Jose Eduardo Note: Please also refer to the separate dictated note~for this date of service dictated separately.~Patient seen individually. Discussed the patient with Nursing staff reviewed the chart.~Reviewed interim history and current functioning. Reviewed vital signs,~Labs/ Radiology~and current medications noted below. Continue current treatment with the changes noted in the dictated addendum note Assessment: Vital Signs/I&O: Vital Signs Date Time Temp Pulse Resp B/P (MAP) Pulse Ox O2 Delivery O2 Flow Rate FiO2 11/14/19 16:13 97.4 60 20 113/82 (92) 99 11/11/19 06:37 Room Air I & O 11/13/19 11/13/19 11/14/19 15:00 23:00 07:00 Intake Total 360 ml 960 ml Balance 360 ml 960 ml Current Medications: I have reviewed the current psychotropics carefully including drug interactions. Risk benefit ratio favors no change other than as noted in my dictated progress note. Diagnosis: Problems: (1) Dementia with behavioral disturbance (2) Anxiety disorder (3) Dementia, vascular, with delusions (4) Dementia, vascular, with depression (5) Dementia in Alzheimer's disease with delusions (6) Dementia in Alzheimer's disease with depression (7) Impulse control disorder MAN VICKERS MD Nov 14, 2019 20:52
[2019-11-14] MEDS: MAGNESIUM HYDROXIDE 2,400 MG/30 ML ORAL.SUSP. PO SCH (21:00)
[2019-11-14] MEDS: MIRTAZAPINE 7.5 MG TABLET. PO SCH (21:00)
[2019-11-14] MEDS: DONEPEZIL 23 MG TABLET PO SCH (21:00)
--- NOTE | 2019-11-15 00:22 | PN ---
DATE: 11/12/2019 PSYCHIATRIC PROGRESS NOTE This late entry 11/12/2019 covers elements not covered in my initial note. SUBJECTIVE: I met with the patient evening of 11/12/2019. Per CLAUDE Shore, the patient slept till lunchtime and had previously slept 6-1/2 hours at night. Then, he was quite cooperative, agitated in the afternoon, received IM Ativan scheduled. REVIEW OF SYSTEMS: Poor vision. Hard of hearing. No CV, , GI, or pulmonary system symptoms on review. Reliability poor. MENTAL STATUS EXAM: Oriented to himself. Insight, judgment, recent and remote memory, attention, concentration, fund of knowledge poor, consistent with his diagnosis mentioned in my initial note. PLAN: No change from initial note. MAN Eulalio VICKERS MD DR: AARON/mannie JOB#: [id number] / [id number]
[2019-11-15 06:07] VITALS: BP 96/45
[2019-11-15 06:58] LABS: BASO # 0.1 x10^3/uL (0.0-0.2); BASO % 1 % (0-3); EOS # 0.3 x10^3/uL (0.0-0.7); EOS % 3 % (0-3); HEMATOCRIT 40.4 % (39.0-53.0); HEMOGLOBIN 12.9 g/dL (13.0-17.5); LYMPH # 1.6 x10^3/uL (1.0-4.8); LYMPH % 17 % (24-48); MEAN CORPUSCULAR HEMOGLOBIN 30 pg (25-35); MEAN CORPUSCULAR HGB CONC 32 g/dL (31-37); MEAN CORPUSCULAR VOLUME 93 fL (79-100); MONO # 0.8 x10^3/uL (0.0-1.1); MONO % 8 % (0-9); NEUT # 6.9 x10^3uL (1.8-7.7); NEUT % 72 % (31-73); PLATELET COUNT 252 x10^3/uL (140-400); RED BLOOD COUNT 4.34 x10^6/uL (4.30-5.70); RED CELL DISTRIBUTION WIDTH 14.9 % (11.5-14.5); WHITE BLOOD COUNT 9.6 x10^3/uL (4.0-11.0)
[2019-11-15 07:14] LABS: ALBUMIN/GLOBULIN RATIO 0.8 (1.0-1.7); ALK PHOS 120 U/L (46-116); ALT (SGPT) 22 U/L (16-63); ANION GAP 5 (6-14); AST (SGOT) 30 U/L (15-37); BLOOD UREA NITROGEN 52 mg/dL (8-26); BUN/CREATININE RATIO 47 (6-20); CALCIUM 8.5 mg/dL (8.5-10.1); CARBON DIOXIDE 31 mmol/L (21-32); CHLORIDE 115 mmol/L (98-107); CREATININE 1.1 mg/dL (0.7-1.3); GFR 64.4; GLUCOSE 85 mg/dL (70-99); POTASSIUM 4.4 mmol/L (3.5-5.1); SODIUM 151 mmol/L (136-145); TOTAL BILIRUBIN 0.3 mg/dL (0.2-1.0); TOTAL PROTEIN 6.8 g/dL (6.4-8.2)
[2019-11-15 07:16] LABS: VAL ACID 6 mcg/mL (50-100)
[2019-11-15] MEDS: ACETAMINOPHEN 650 MG/20.3 ML SOLUTION. PO SCH ×2 (08:42→21:00)
[2019-11-15] MEDS: NYSTATIN TOPICAL POWDER 15GM BOTTLE. TP SCH ×2 (08:42→21:00)
[2019-11-15] MEDS: NAPROXEN 250 MG TABLET PO SCH ×2 (08:43→21:00)
[2019-11-15] MEDS: ASPIRIN 81 MG TAB.CHEW PO SCH (08:43)
[2019-11-15] MEDS: DIVALPROEX 125 MG CAP.SPRINK PO SCH ×2 (08:43→17:11)
[2019-11-15] MEDS: LACTOBACILLUS RHAMNOSUS GG 1 CAPSULE. PO SCH ×2 (08:43→21:00)
[2019-11-15] MEDS: POTASSIUM CHLORIDE 20 MEQ TABLET.ER. PO SCH (08:43)
[2019-11-15] MEDS: MEMANTINE 10 MG TABLET. PO SCH ×2 (08:43→21:00)
[2019-11-15] MEDS: CARBIDOPA/LEVODOPA 25/100MG TABLET PO SCH ×4 (08:43→21:00)
[2019-11-15] MEDS: QUEtiapine 25 MG TABLET. PO SCH ×3 (08:44→17:11)
[2019-11-15] MEDS: SERTRALINE 100 MG TABLET. PO SCH (08:44)
[2019-11-15] MEDS: amLODIPine BESYLATE 5 MG TABLET PO SCH ×3 (08:44→09:00)
[2019-11-15] MEDS ORDERED: medroxyPROGESTERone IM 150 MG/ML VIAL. IM SCH (09:00)
[2019-11-15 15:17] VITALS: BP 127/50
[2019-11-15] MEDS: MAGNESIUM HYDROXIDE 2,400 MG/30 ML ORAL.SUSP. PO SCH (21:00)
[2019-11-15] MEDS: DONEPEZIL 23 MG TABLET PO SCH (21:00)
[2019-11-15] MEDS: MELATONIN 3 MG TABLET PO SCH (21:00)
[2019-11-15] MEDS: MIRTAZAPINE 7.5 MG TABLET. PO SCH (21:00)
--- NOTE | 2019-11-15 21:38 | PDOC ---
Exam Note: Jose Eduardo Note: Please also refer to the separate dictated note~for this date of service dictated separately.~Patient seen individually. Discussed the patient with Nursing staff reviewed the chart.~Reviewed interim history and current functioning. Reviewed vital signs,~Labs/ Radiology~and current medications noted below. Continue current treatment with the changes noted in the dictated addendum note Assessment: Vital Signs/I&O: Vital Signs Date Time Temp Pulse Resp B/P (MAP) Pulse Ox O2 Delivery O2 Flow Rate FiO2 11/15/19 15:17 98.3 87 18 127/50 (75) 93 11/11/19 06:37 Room Air I & O 11/14/19 11/14/19 11/15/19 15:00 23:00 07:00 Intake Total 600 ml Balance 600 ml Labs: Laboratory Tests Test 11/15/19 06:47 White Blood Count 9.6 x10^3/uL (4.0-11.0) Red Blood Count 4.34 x10^6/uL (4.30-5.70) Hemoglobin 12.9 g/dL (13.0-17.5) L Hematocrit 40.4 % (39.0-53.0) Mean Corpuscular Volume 93 fL (79-100) Mean Corpuscular Hemoglobin 30 pg (25-35) Mean Corpuscular Hemoglobin Concent 32 g/dL (31-37) Red Cell Distribution Width 14.9 % (11.5-14.5) H Platelet Count 252 x10^3/uL (140-400) Neutrophils (%) (Auto) 72 % (31-73) Lymphocytes (%) (Auto) 17 % (24-48) L Monocytes (%) (Auto) 8 % (0-9) Eosinophils (%) (Auto) 3 % (0-3) Basophils (%) (Auto) 1 % (0-3) Neutrophils # (Auto) 6.9 x10^3uL (1.8-7.7) Lymphocytes # (Auto) 1.6 x10^3/uL (1.0-4.8) Monocytes # (Auto) 0.8 x10^3/uL (0.0-1.1) Eosinophils # (Auto) 0.3 x10^3/uL (0.0-0.7) Basophils # (Auto) 0.1 x10^3/uL (0.0-0.2) Sodium Level 151 mmol/L (136-145) H Potassium Level 4.4 mmol/L (3.5-5.1) Chloride Level 115 mmol/L (98-107) H Carbon Dioxide Level 31 mmol/L (21-32) Anion Gap 5 (6-14) L Blood Urea Nitrogen 52 mg/dL (8-26) H Creatinine 1.1 mg/dL (0.7-1.3) Estimated GFR (Cockcroft-Gault) 64.4 BUN/Creatinine Ratio 47 (6-20) H Glucose Level 85 mg/dL (70-99) Calcium Level 8.5 mg/dL (8.5-10.1) Total Bilirubin 0.3 mg/dL (0.2-1.0) Aspartate Amino Transferase (AST) 30 U/L (15-37) Alanine Aminotransferase (ALT) 22 U/L (16-63) Alkaline Phosphatase 120 U/L (46-116) H Ammonia < 10 mcmol/L (11-34) L Total Protein 6.8 g/dL (6.4-8.2) Albumin 3.0 g/dL (3.4-5.0) L Albumin/Globulin Ratio 0.8 (1.0-1.7) L Valproic Acid Level 6 mcg/mL (50-100) L Valproic Acid Last Dose Date 11/14/19 Valproic Acid Last Dose Time 1700 Current Medications: Meds: Current Medications Medications (Trade) Dose Ordered Sig/Cathi Route PRN Reason Start Time Stop Time Status Last Admin Dose Admin Medroxyprogesterone Acetate (Depo-Provera Im) 150 mg Q2WKS IM 11/15/19 09:00 11/15/19 12:24 I have reviewed the current psychotropics carefully including drug interactions. Risk benefit ratio favors no change other than as noted in my dictated progress note. Diagnosis: Problems: (1) Dementia with behavioral disturbance (2) Anxiety disorder (3) Dementia, vascular, with delusions (4) Dementia, vascular, with depression (5) Dementia in Alzheimer's disease with delusions (6) Dementia in Alzheimer's disease with depression (7) Impulse control disorder MAN VICKERS MD Nov 15, 2019 21:38
--- NOTE | 2019-11-16 01:33 | PN ---
DATE: 11/13/2019 PSYCHIATRIC PROGRESS NOTE This late entry 11/13/2019 covers elements not covered in my initial note. SUBJECTIVE: I met with the patient in the evening of 11/13/2019. The patient slept 7-3/4 hours previous night per CLAUDE Michael. 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 REVIEW OF SYSTEMS: Hard of hearing, poor vision. No CV, , pulmonary, eye system symptoms on review. MENTAL STATUS EXAM: Oriented to himself. Insight, judgment, recent and remote memory, attention, concentration, fund of knowledge poor, consistent with his diagnosis mentioned in my initial note. PLAN: No change from initial note. MAN Eulalio VICKERS MD DR: AARON/mannie JOB#: [id number] / [id number]
--- NOTE | 2019-11-16 01:40 | PN ---
DATE: 11/14/2019 This late entry, 11/14, covers elements not covered in my initial note. SUBJECTIVE: I met with the patient in the evening. Per CLAUDE Michael, the patient slept 8-1/4 hours previous night. He was striking out at another patient, trying to get out of his chair and is a fall risk. REVIEW OF SYSTEMS: Hard of hearing, poor vision, impaired ambulation. No CV, or pulmonary system symptoms on review. MENTAL STATUS EXAM: Oriented to himself. Insight, judgment, recent and remote memory, attention, concentration, fund of knowledge poor, consistent with his diagnosis mentioned in my initial note. PLAN: No change from initial note. MAN Eulalio VICKERS MD DR: AARON/mannie JOB#: [id number] / [id number]
[2019-11-16 05:37] VITALS: BP 95/50
[2019-11-16] MEDS: POTASSIUM CHLORIDE 20 MEQ TABLET.ER. PO SCH (09:00)
[2019-11-16] MEDS: CARBIDOPA/LEVODOPA 25/100MG TABLET PO SCH ×4 (09:00→19:56)
[2019-11-16] MEDS: ACETAMINOPHEN 650 MG/20.3 ML SOLUTION. PO SCH ×2 (09:00→19:56)
[2019-11-16] MEDS: DIVALPROEX 125 MG CAP.SPRINK PO SCH (09:00)
[2019-11-16] MEDS: MEMANTINE 10 MG TABLET. PO SCH (09:00)
[2019-11-16] MEDS: NYSTATIN TOPICAL POWDER 15GM BOTTLE. TP SCH ×2 (09:00→19:54)
[2019-11-16] MEDS: QUEtiapine 25 MG TABLET. PO SCH ×3 (09:00→17:58)
[2019-11-16] MEDS: LACTOBACILLUS RHAMNOSUS GG 1 CAPSULE. PO SCH ×2 (09:00→19:54)
[2019-11-16] MEDS: SERTRALINE 100 MG TABLET. PO SCH (09:00)
[2019-11-16] MEDS: ASPIRIN 81 MG TAB.CHEW PO SCH (09:00)
[2019-11-16] MEDS: amLODIPine BESYLATE 5 MG TABLET PO SCH (09:00)
[2019-11-16] MEDS: NAPROXEN 250 MG TABLET PO SCH ×2 (09:00→19:55)
[2019-11-16 15:58] VITALS: BP 156/68
[2019-11-16] MEDS: MELATONIN 3 MG TABLET PO SCH (19:55)
[2019-11-16] MEDS: MIRTAZAPINE 7.5 MG TABLET. PO SCH (19:55)
[2019-11-16] MEDS: MAGNESIUM HYDROXIDE 2,400 MG/30 ML ORAL.SUSP. PO SCH (19:56)
--- NOTE | 2019-11-16 21:53 | PDOC ---
Exam Note: Jose Eduardo Note: Please also refer to the separate dictated note~for this date of service dictated separately.~Patient seen individually. Discussed the patient with Nursing staff reviewed the chart.~Reviewed interim history and current functioning. Reviewed vital signs,~Labs/ Radiology~and current medications noted below. Continue current treatment with the changes noted in the dictated addendum note Assessment: Vital Signs/I&O: Vital Signs Date Time Temp Pulse Resp B/P (MAP) Pulse Ox O2 Delivery O2 Flow Rate FiO2 11/16/19 15:58 98.5 55 14 156/68 (97) 98 11/11/19 06:37 Room Air I & O 11/15/19 11/15/19 11/16/19 15:00 23:00 07:00 Intake Total 360 ml 120 ml Balance 360 ml 120 ml Current Medications: I have reviewed the current psychotropics carefully including drug interactions. Risk benefit ratio favors no change other than as noted in my dictated progress note. Diagnosis: Problems: (1) Dementia with behavioral disturbance (2) Anxiety disorder (3) Dementia, vascular, with delusions (4) Dementia, vascular, with depression (5) Dementia in Alzheimer's disease with delusions (6) Dementia in Alzheimer's disease with depression (7) Impulse control disorder MAN VICKERS MD Nov 16, 2019 21:53
[2019-11-16] MEDS ORDERED: CARB1TAB22 PO (23:14)
[2019-11-16] MEDS ORDERED: CHOL500021 PO (23:15)
[2019-11-16] MEDS ORDERED: DIVA125C2 PO (23:17)
[2019-11-16] MEDS ORDERED: LACT1CAP21 PO (23:20)
[2019-11-16] MEDS ORDERED: LOPE-101 PO (23:21)
[2019-11-16] MEDS ORDERED: MEMA10TA56 PO (23:24)
[2019-11-16] MEDS ORDERED: METH28OI2 TP (23:25)
[2019-11-16] MEDS ORDERED: NAPR-683 PO (23:26)
[2019-11-16] MEDS ORDERED: NYST15PO9 TP (23:27)
--- NOTE | 2019-11-16 23:28 | PN ---
DATE: 11/15/2019 PSYCHIATRIC PROGRESS NOTE This late entry 11/15/2019 covers the elements not covered in my initial note. SUBJECTIVE: I met with the patient in the evening. The patient slept 6-3/4 hours previous night per CLAUDE Olivarez. He was agitated at night, received Zyprexa and again this morning at 6:00 a.m. on 11/15/2019 due to agitation, restlessness, paranoia. Takes his medications crushed in boost. Overall, doing a little bit better. Valproic acid level is 6. Ammonia is less than 10. REVIEW OF SYSTEMS: No CV, , pulmonary, eye system symptoms on review. Reliability poor, but he is extremely hard of hearing with poor vision. MENTAL STATUS EXAM: Oriented to himself. Insight, judgment, recent and remote memory, attention, concentration, fund of knowledge poor, consistent with his diagnosis mentioned in my initial note. PLAN: No change from initial note. MAN Eulalio VICKERS MD DR: AARON/mannie JOB#: [id number] / [id number]
[2019-11-16] MEDS ORDERED: QUET25TA5 PO (23:29)
[2019-11-16] MEDS ORDERED: SERT50TA PO (23:30)
[2019-11-16] MEDS ORDERED: TRAZ-120 PO (23:31)
[2019-11-16] MEDS ORDERED: MEDR150D3 IM (23:31)
[2019-11-17 06:32] VITALS: BP 150/69
[2019-11-17] MEDS: NYSTATIN TOPICAL POWDER 15GM BOTTLE. TP SCH (08:25)
[2019-11-17] MEDS: LACTOBACILLUS RHAMNOSUS GG 1 CAPSULE. PO SCH ×2 (08:26→09:00)
[2019-11-17] MEDS: ACETAMINOPHEN 650 MG/20.3 ML SOLUTION. PO SCH ×2 (08:26→09:00)
[2019-11-17] MEDS: ASPIRIN 81 MG TAB.CHEW PO SCH ×2 (08:26→09:00)
[2019-11-17] MEDS: CARBIDOPA/LEVODOPA 25/100MG TABLET PO SCH ×2 (08:26→09:00)
[2019-11-17] MEDS: SERTRALINE 100 MG TABLET. PO SCH ×2 (08:26→09:00)
[2019-11-17] MEDS: amLODIPine BESYLATE 5 MG TABLET PO SCH ×2 (08:27→09:00)
[2019-11-17] MEDS: NAPROXEN 250 MG TABLET PO SCH ×2 (08:28→09:00)
[2019-11-17] MEDS: POTASSIUM CHLORIDE 20 MEQ TABLET.ER. PO SCH ×2 (08:28→09:00)
[2019-11-17] MEDS: QUEtiapine 25 MG TABLET. PO SCH ×2 (08:28→09:00)
[2019-11-17 09:00] VITALS: BP 150/69
[2019-11-17] MEDS ORDERED: ACET500T68 PO (11:55)
[2019-11-17] MEDS ORDERED: MAGN24003 PO (12:04)
--- NOTE | 2019-11-17 21:59 | PDOC ---
Exam Note: Ojse Eduardo Note: Please also refer to the separate dictated note~for this date of service dictated separately.~Patient seen individually. Discussed the patient with Nursing staff reviewed the chart.~Reviewed interim history and current functioning. Reviewed vital signs,~Labs/ Radiology~and current medications noted below. Continue current treatment with the changes noted in the dictated addendum note Assessment: Vital Signs/I&O: Vital Signs Date Time Temp Pulse Resp B/P (MAP) Pulse Ox O2 Delivery O2 Flow Rate FiO2 11/17/19 09:00 72 150/69 11/17/19 06:32 96.8 19 98 I & O 11/16/19 11/16/19 11/17/19 15:00 23:00 07:00 Intake Total 0 ml 0 ml Balance 0 ml 0 ml Current Medications: I have reviewed the current psychotropics carefully including drug interactions. Risk benefit ratio favors no change other than as noted in my dictated progress note. Diagnosis: Problems: (1) Anxiety disorder (2) Dementia, vascular, with delusions (3) Dementia, vascular, with depression (4) Dementia in Alzheimer's disease with delusions (5) Dementia in Alzheimer's disease with depression (6) Impulse control disorder MAN VICKERS MD Nov 17, 2019 21:59
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
--- NOTE | 2019-11-18 04:35 | PN ---
DATE: 11/16/2019 This late entry, 11/16, covers elements not covered in my initial note. SUBJECTIVE: I met with the patient evening of 11/16. Per CLAUDE Canseco, the patient slept 5-1/4 hours previous night. He has been in bed all day, appears weaker, somewhat dehydrated. Labs are reflective of this. We will defer to Dr. Valera. Apparently, he is being transitioned to hospice care, but again I will let Dr. Valera decide on this. Given his tiredness withdrawal, we will stop the Depakote, Aricept, Namenda and discontinue the IM Ativan as well. REVIEW OF SYSTEMS: He is hard of hearing, poor vision, tired. No CV, , pulmonary, eye, ENT system symptoms on review. Reliability poor. MENTAL STATUS EXAM: Oriented to himself. Insight, judgment, recent and remote memory, attention, concentration, fund of knowledge poor, consistent with his diagnosis mentioned in my initial note. PLAN: No change from initial note other than what is noted above. MAN Eulalio VICKERS MD DR: AARON/mannie JOB#: [id number] / [id number]
== END 2019-11-17 12:45 | disposition hospice, inpatient (51) | DRG 57 ==
LOC: ER 15:21 → GEROPSY 17:58
PROVIDERS: ADMIT Psychiatry & Neurology Psychiatry; ATTEND Psychiatry & Neurology Psychiatry
DX: G30.9 Alzheimer's disease, unspecified (principal); F02.81 Dementia in other diseases classified elsewhere, unspecified severity, with behavioral disturbance; F01.51 Vascular dementia, unspecified severity, with behavioral disturbance; L03.113 Cellulitis of right upper limb; F41.9 Anxiety disorder, unspecified; G20 Parkinson's disease; Z66 Do not resuscitate; Z51.5 Encounter for palliative care; F63.9 Impulse disorder, unspecified; F32.9 Major depressive disorder, single episode, unspecified; M19.90 Unspecified osteoarthritis, unspecified site; H90.3 Sensorineural hearing loss, bilateral; H54.7 Unspecified visual loss; E86.0 Dehydration; I48.0 Paroxysmal atrial fibrillation; J44.9 Chronic obstructive pulmonary disease, unspecified; I10 Essential (primary) hypertension; Z79.899 Other long term (current) drug therapy; Z91.81 History of falling; Z79.82 Long term (current) use of aspirin
CPT/HCPCS: 36415; 73080; 73130; 80053; 80061; 80164; 80307; 81001; 82140; 82306; 82607; 82947; 83036; 83540; 83550; 83735; 84436; 84443; 84480; 85025; 85027; 85651; 86140; 86592; 87086; 87186; 93005; G0480; J0561; J1050; J2060; P9612; 99285-25